=== PATIENT | male | born 1945 | race Caucasian/White ===

== ENCOUNTER 2017-04-04 15:31 | Emergency (ER) | payer BC ==
[~2017-04-04] VITALS: Ht 172.7 cm; Wt 132.8 kg
[2017-04-04 15:42] VITALS: TEMP 36.9; Ht 172.7 cm; Wt 132.8 kg
--- NOTE | 2017-04-04 16:28 | EMERGENCY ROOM VISIT NOTE ---
History Report prepared by Adeline: Mando Vargas Under the Supervision of: Dr. Sheldon Thomason M.D. First contact with patient: 16:06 Chief Complaint: RECTAL BLEEDING Stated Complaint: BLOOD IN STOOL History of Present Illness The patient is a 71 year old male who presents to the Emergency Room with complaints of persistent hematochezia occurring earlier today. The patient states that for the past several weeks he was having light stool that was loose. Today, he had two bowel movements that looked like little balls that were covered in blood. He states that afterwards when he wiped he had blood mixed with his stool. The patient notes that he has been having some intermittent abdominal pain as well as pain that radiates into his right shoulder. The patient takes a low dose aspirin daily, and he has diabetes. He states that he had a colonoscopy done 2-3 years ago, and he had a few polyps removed. Source of History: patient Onset: earlier today Position: other (global) Quality: other (hematochezia) Timing: other (persistent) Associated Symptoms: + abdominal pain Note: Associated symptoms: Shoulder pain Review of Systems See HPI for pertinent positives & negatives. A total of 10 systems reviewed and were otherwise negative. Past Medical & Surgical Medical Problems: (1) Diabetes (2) Heart disease (3) HTN (hypertension) (4) Kidney disease Family History Cancer Diabetes mellitus Heart disease Social History Smoking Status: Former Smoker Marital Status: single Housing Status: lives with family Occupation Status: retired Current/Historical Medications Scheduled Allopurinol (Zyloprim), 300 MG PO HS Amlodipine (Norvasc), 5 MG PO HS Aspirin (Aspirin Ec), 81 MG PO HS Atorvastatin (Lipitor), 40 MG PO HS Ciprofloxacin Hcl (Cipro), 1 TAB PO BID Docusate Sodium (Colace), 1 CAP PO BID Ferrous Sulfate (Iron), 650 MG PO DAILY Furosemide (Lasix), 60 MG PO QAM Furosemide (Lasix), 40 MG PO DAILY@1200 Glipizide (Glipizide ER), 10 MG PO QAM Insulin Aspart (Novolog), 6 UNITS SQ DAILYBD Insulin Glargine (Lantus), 35 UNITS SC QPM Insulin Glargine (Lantus), 20 UNITS SC QAM Lisinopril (Zestril), 20 MG PO BID Metronidazole (Flagyl), 500 MG PO TID Multiple Vitamins W/ Minerals (One Daily For Men 50+ Adv), 1 TAB PO DAILY Pantoprazole (Protonix), 40 MG PO DAILY Sennosides (Senokot), 8.6 MG PO HS Terazosin Hcl (Hytrin), 2 MG PO HS Scheduled PRN Hydralazine HCl (Hydralazine HCl), 75 MG PO TID PRN for . Allergies Coded Allergies: Beta Adrenergic Blockers (Unverified Allergy, Unknown, ., 04/04/17) Penicillins (Unverified Allergy, Unknown, ., 04/04/17) Tetracycline (Unverified Allergy, Unknown, ., 04/04/17) Physical Exam Vital Signs Date Time Temp Pulse Resp B/P (MAP) Pulse Ox O2 Delivery O2 Flow Rate FiO2 04/04/17 18:10 73 18 171/75 96 04/04/17 15:42 36.9 70 18 184/79 93 Room Air Physical Exam GENERAL: Patient is a healthy-appearing well-nourished male HEAD: Normocephalic atraumatic EYES: Ocular movements intact pupils equal and react to light OROPHARYNX mucous membranes are moist no exudates present no erythema or edema present NECK: Supple no nuchal rigidity CHEST: Good equal expansion LUNGS: Clear and equal to auscultation CARDIAC: Normal S1 and S2 ABDOMEN: Soft nontender no guarding BACK: No CVA tenderness RECTAL: Heme negative stool. EXTREMITIES: No pain upon palpation normal muscle strength in all groups no clubbing cyanosis or edema NEURO: Patient is following commands and answering questions appropriately. Alert and oriented x3 Cranial Nerves 2-12 grossly intact Medical Decision & Procedures ER Provider Diagnostic Interpretation: Radiology results as stated below per my review and radiologist interpretation: ABDOMEN AND PELVIS CT WITH IV CONTRAST CT DOSE: 1605.20 mGy.cm HISTORY: Acute generalized abdominal pain with rectal bleeding Pt c/o abd pain, rectal bleeding TECHNIQUE: Multiaxial CT images of the abdomen and pelvis were performed following the use of intravenous contrast. 118 mL Optiray 320 IV contrast administered A dose lowering technique was utilized adhering to the principles of ALARA. COMPARISON STUDY: None. FINDINGS: Calcified granuloma the left lower lobe. Calcified left hilar lymph nodes. No pneumatosis or pneumoperitoneum identified. Imaged inferior cardiac chambers are noted limits of normal in size. Coronary arterial calcifications noted. Prior cholecystectomy. 4 mm low attenuating lesion of the anterior right hepatic lobe is too small to characterize, however statistically likely benign. Calcifications are noted throughout the spleen compatible with prior hematogenous granulomatous disease. Splenomegaly, 17 cm. Mild diffuse pancreatic atrophy. Adrenal glands are within normal limits. Low attenuating lesions of the kidneys bilaterally suggests renal cysts, largest measuring 1.6 cm within the inferior pole left kidney. Mild bilateral renal cortical thinning with renal vascular calcifications. Mild nonspecific bilateral perinephric stranding. No renal calculi or hydronephrosis. Ureters and urinary bladder are unremarkable. Prostate is mildly enlarged. There is moderate atherosclerosis of the aorta and its proximal branch vessels. No bulky adenopathy identified. Nonspecific superficial subcutaneous venous varices of the right lateral thigh. Ovoid circumscribed soft tissue structure, 1.8 x 1.4 cm is noted anterior to the distal esophagus just proximal to the diaphragmatic hiatus as seen on image 72 series 3. There are adjacent nonenlarged paraesophageal lymph nodes measuring up to 7 mm. Nonenlarged gastrohepatic lymph nodes are seen measuring up to 7 mm No bowel obstruction. Moderate sigmoid diverticulosis. Inflamed diverticulum of the mid sigmoid colon noted, image 267 series 3 with moderate wall thickening and surrounding inflammatory stranding. No perforation or abscess identified. Moderate stool volume throughout the colon suggest constipation. Appendix appears normal. Soft tissues are unremarkable. Bones appear intact. Multilevel degenerative changes of the lumbar spine. Findings include multilevel at least moderate facet arthropathy and moderate severe intervertebral disc space narrowing with endplate spurring. IMPRESSION: 1. Findings compatible with acute uncomplicated sigmoid diverticulitis. 2. Splenomegaly. 3. Prior granulomatous disease. 4. Ovoid circumscribed structure measuring 1.8 x 1.4 cm is noted anterior to the distal esophagus just proximal to the diaphragmatic hiatus with adjacent small nonenlarged lymph nodes. This suggests an enlarged lymph node and may be reactive or metastatic. These findings could be correlated with endoscopy. 5. Prior cholecystectomy. Electronically signed by: Elliott Mcghee M.D. 04/04/2017 5:24 PM Dictated Date/Time: 04/04/2017 5:12 PM Laboratory Results 04/04/17 16:40 Red Blood Count 5.29, Mean Corpuscular Volume 87.3, Mean Corpuscular Hemoglobin 31.2, Mean Corpuscular Hemoglobin Concent 35.7, Mean Platelet Volume 10.6, Neutrophils (%) (Auto) 80.5, Lymphocytes (%) (Auto) 9.8, Monocytes (%) (Auto) 6.8, Eosinophils (%) (Auto) 2.2, Basophils (%) (Auto) 0.4, Neutrophils # (Auto) 8.82, Lymphocytes # (Auto) 1.07, Monocytes # (Auto) 0.74, Eosinophils # (Auto) 0.24, Basophils # (Auto) 0.04 04/04/17 16:40 Test 04/04/17 16:40 04/04/17 16:53 White Blood Count 10.94 K/uL (4.8-10.8) Red Blood Count 5.29 M/uL (4.7-6.1) Hemoglobin 16.5 g/dL (14.0-18.0) Hematocrit 46.2 % (42-52) Mean Corpuscular Volume 87.3 fL (80-100) Mean Corpuscular Hemoglobin 31.2 pg (25-34) Mean Corpuscular Hemoglobin Concent 35.7 g/dl (32-36) Platelet Count 100 K/uL (130-400) Mean Platelet Volume 10.6 fL (7.4-10.4) Neutrophils (%) (Auto) 80.5 % Lymphocytes (%) (Auto) 9.8 % Monocytes (%) (Auto) 6.8 % Eosinophils (%) (Auto) 2.2 % Basophils (%) (Auto) 0.4 % Neutrophils # (Auto) 8.82 K/uL (1.4-6.5) Lymphocytes # (Auto) 1.07 K/uL (1.2-3.4) Monocytes # (Auto) 0.74 K/uL (0.11-0.59) Eosinophils # (Auto) 0.24 K/uL (0-0.5) Basophils # (Auto) 0.04 K/uL (0-0.2) RDW Standard Deviation 44.6 fL (36.4-46.3) RDW Coefficient of Variation 14.0 % (11.5-14.5) Immature Granulocyte % (Auto) 0.3 % Immature Granulocyte # (Auto) 0.03 K/uL (0.00-0.02) Prothrombin Time 10.4 SECONDS (9.0-12.0) Prothromb Time International Ratio 1.0 (0.9-1.1) Activated Partial Thromboplast Time 26.7 SECONDS (21.0-31.0) Partial Thromboplastin Ratio 1.0 Est Creatinine Clear Calc Drug Dose 58.7 ml/min Estimated GFR () 51.4 Estimated GFR (Non- 44.3 BUN/Creatinine Ratio 29.3 (10-20) Calcium Level 8.8 mg/dl (8.5-10.1) Total Bilirubin 0.6 mg/dl (0.2-1) Direct Bilirubin 0.2 mg/dl (0-0.2) Aspartate Amino Transf (AST/SGOT) 13 U/L (15-37) Alanine Aminotransferase (ALT/SGPT) 26 U/L (12-78) Alkaline Phosphatase 159 U/L (45-117) Total Protein 7.6 gm/dl (6.4-8.2) Albumin 3.7 gm/dl (3.4-5.0) Lipase 380 U/L (73-393) Bedside Hemoglobin 15.6 g/dl (14.0-18.0) Bedside Hematocrit 46 % (42-52) Bedside Sodium 141 mEq/L (135-144) Bedside Potassium 4.0 mEq/L (3.3-5.0) Bedside Chloride 104 mEq/L (101-112) Bedside Total CO2 25 mEq/l (24-31) Anion Gap 17.0 mmol/L (16-25) Bedside Blood Urea Nitrogen 40 mg/dl (7-18) Bedside Creatinine 1.5 mg/dl (0.6-1.3) Bedside Glucose (other) 230 mg/dl (70-99) Bedside Ionized Calcium (Benitez) 1.16 mmol/l (1.12-1.32) Labs reviewed by ED physician. Medications Administered Medications (Trade) Dose Ordered Sig/Bina Route Start Time Stop Time Status Last Admin Dose Admin Ciprofloxacin (Cipro Tab) 500 mg NOW STAT PO 04/04/17 17:38 04/04/17 17:40 DC 04/04/17 17:56 500 MG Metronidazole (Flagyl Tab) 500 mg NOW STAT PO 04/04/17 17:38 04/04/17 17:40 DC 04/04/17 17:56 500 MG ECG Indication: abdominal pain, other (hematochezia) Rate (beats per minute): 70 Rhythm: sinus rhythm Findings: 1st degree AV block, no acute ischemic change, no ectopy, other (Old inferior infarct) ED Course 1606: Past medical records reviewed. The patient was evaluated in room C4. A complete history and physical examination was performed. 1738: Flagyl Tab 500mg PO, Cipro Tab 500mg PO 1740: Upon reexamination the patient is doing well. I discussed results and treatment plan with the patient. He verbalizes agreement and understanding. The patient is ready for discharge. Medical Decision Differential diagnosis: Etiologies such as diverticulosis, AVM, coagulopathy, colitis, inflammatory bowel disease, malignancy, Meena-Reza tear, esophagitis, peptic ulcer disease , variceal bleed, gastritis, epistaxis, fissure, hemorrhoids, as well as others were entertained. This is a 71-year-old male who presents emergency department complaining of abdominal pain along with rectal bleeding. I will note that the patient has a normal hemoglobin level here in the emergency department. Serial abdominal examinations were performed on the patient in the emergency department and at no time did the patient exhibit a surgical abdomen in addition on rectal exam the patient is heme negative. The patient is refusing pain medication here in the emergency department. His CAT scan is concerning for diverticulitis. I do believe that the patient is well enough to be discharged home to be placed on Cipro and Flagyl however I stressed the need to return to the emergency department if the patient's pain becomes out of control or he starts running fevers. In addition I also stressed the need for follow-up with gastroenterology. Patient was in agreement with the treatment plan. Medication Reconcilliation Current Medication List: was personally reviewed by me Blood Pressure Screening Patient's blood pressure: Elevated blood pressure Blood pressure disposition: Referred to PCP Impression Primary Impression: Diverticulitis Scribe Attestation The scribe's documentation has been prepared under my direction and personally reviewed by me in its entirety. I confirm that the note above accurately reflects all work, treatment, procedures, and medical decision making performed by me. Departure Information Dispostion Home / Self-Care Prescriptions Docusate Sodium (COLACE) 100 Mg Cap 1 CAP PO BID for 10 Days, #20 CAP Prov: Sheldon Thomason MD 04/04/17 Sennosides (SENOKOT) 8.6 Mg Tab 8.6 MG PO HS for 10 Days, #10 TAB Prov: Sheldon Thomason MD 04/04/17 Metronidazole (Flagyl) 500 Mg Tab 500 MG PO TID for 10 Days, #30 TAB Prov: Sheldon Thomason MD 04/04/17 Ciprofloxacin Hcl (CIPRO) 500 Mg Tab 1 TAB PO BID for 10 Days, #20 TAB Prov: Sheldon Thomason MD 04/04/17 Referrals No Doctor, Assigned (PCP) Forms HOME CARE DOCUMENTATION FORM, IMPORTANT VISIT INFORMATION, WORK / SCHOOL INSTRUCTIONS Patient Instructions Bleeding Rectal Evaluate Treat, Diverticulitis Dc, Diverticulosis Diverticulitis , ED Hematochezia Stable, My [facility] Additional Instructions Need follow up with Dr Silveira's office for upper undoscopy for lymph node Need follow up with DR Silveira's office for diverticulitis Return if you develop fevers or severe abd pain You were found to have an elevated blood pressure today (>120 sytolic or >90 diastolic). Per medicare guidelines, you need to follow up with this blood pressure screening with your Primary Care Physician (PCP). For a new PCP call [phone]. You have been examined and treated today on an emergency basis only. This is not a substitute for, or an effort to provide, complete comprehensive medical care. It is impossible to recognize and treat all injuries or illnesses in a single emergency department visit. It is therefore important that you follow up closely with your PCP. Call as soon as possible for an appointment. Thank you for your time and consideration. I look forward to speaking with you again soon. Please don't hesitate to call us if you have any questions.
[2017-04-04] MEDS ORDERED: OPTIRAY 320 IV PRN (16:30)
[2017-04-04] MEDS ORDERED: AMLO-114 PO (16:53)
[2017-04-04] MEDS ORDERED: PANT40TA PO (16:53)
[2017-04-04] MEDS ORDERED: HYT/2 PO (16:53)
[2017-04-04] MEDS ORDERED: FRS/40 PO ×2 (16:53)
[2017-04-04] MEDS ORDERED: MULT1TAB18 PO (16:53)
[2017-04-04] MEDS ORDERED: GLCSR10 PO (16:53)
[2017-04-04] MEDS ORDERED: FERR1TAB23 PO (16:53)
[2017-04-04] MEDS ORDERED: ALLO300T2 PO (16:53)
[2017-04-04] MEDS ORDERED: APR50 PO (16:53)
[2017-04-04] MEDS ORDERED: LISI-725 PO (16:53)
[2017-04-04] MEDS ORDERED: NVLG SQ (16:53)
[2017-04-04] MEDS ORDERED: INSDGI SC ×2 (16:53)
[2017-04-04] MEDS ORDERED: ASPI81TA28 PO (16:53)
[2017-04-04] MEDS ORDERED: ATOR-24 PO (16:53)
[2017-04-04 17:04] LABS: PROTHROMBIN TIME (PATIENT) 10.4 SECONDS (9.0-12.0)
[2017-04-04 17:06] LABS: ISTAT CREATININE 1.5 mg/dl (0.6-1.3); ISTAT HEMOGLOBIN 15.6 g/dl (14.0-18.0); ISTAT IONIZED CALCIUM 1.16 mmol/l (1.12-1.32)
[2017-04-04 17:22] LABS: BUN/CREATININE RATIO 29.3 (10-20); CALCIUM 8.8 mg/dl (8.5-10.1); CREATININE 1.56 mg/dl (0.60-1.40); POTASSIUM 3.9 mmol/L (3.5-5.1)
--- NOTE | 2017-04-04 17:25 | DIAGNOSTIC IMAGING REPORT ---
ABDOMEN AND PELVIS CT WITH IV CONTRAST CT DOSE: 1605.20 mGy.cm HISTORY: Acute generalized abdominal pain with rectal bleeding Pt c/o abd pain, rectal bleeding TECHNIQUE: Multiaxial CT images of the abdomen and pelvis were performed following the use of intravenous contrast. 118 mL Optiray 320 IV contrast administered A dose lowering technique was utilized adhering to the principles of ALARA. COMPARISON STUDY: None. FINDINGS: Calcified granuloma the left lower lobe. Calcified left hilar lymph nodes. No pneumatosis or pneumoperitoneum identified. Imaged inferior cardiac chambers are noted limits of normal in size. Coronary arterial calcifications noted. Prior cholecystectomy. 4 mm low attenuating lesion of the anterior right hepatic lobe is too small to characterize, however statistically likely benign. Calcifications are noted throughout the spleen compatible with prior hematogenous granulomatous disease. Splenomegaly, 17 cm. Mild diffuse pancreatic atrophy. Adrenal glands are within normal limits. Low attenuating lesions of the kidneys bilaterally suggests renal cysts, largest measuring 1.6 cm within the inferior pole left kidney. Mild bilateral renal cortical thinning with renal vascular calcifications. Mild nonspecific bilateral perinephric stranding. No renal calculi or hydronephrosis. Ureters and urinary bladder are unremarkable. Prostate is mildly enlarged. There is moderate atherosclerosis of the aorta and its proximal branch vessels. No bulky adenopathy identified. Nonspecific superficial subcutaneous venous varices of the right lateral thigh. Ovoid circumscribed soft tissue structure, 1.8 x 1.4 cm is noted anterior to the distal esophagus just proximal to the diaphragmatic hiatus as seen on image 72 series 3. There are adjacent nonenlarged paraesophageal lymph nodes measuring up to 7 mm. Nonenlarged gastrohepatic lymph nodes are seen measuring up to 7 mm No bowel obstruction. Moderate sigmoid diverticulosis. Inflamed diverticulum of the mid sigmoid colon noted, image 267 series 3 with moderate wall thickening and surrounding inflammatory stranding. No perforation or abscess identified. Moderate stool volume throughout the colon suggest constipation. Appendix appears normal. Soft tissues are unremarkable. Bones appear intact. Multilevel degenerative changes of the lumbar spine. Findings include multilevel at least moderate facet arthropathy and moderate severe intervertebral disc space narrowing with endplate spurring. IMPRESSION: 1. Findings compatible with acute uncomplicated sigmoid diverticulitis. 2. Splenomegaly. 3. Prior granulomatous disease. 4. Ovoid circumscribed structure measuring 1.8 x 1.4 cm is noted anterior to the distal esophagus just proximal to the diaphragmatic hiatus with adjacent small nonenlarged lymph nodes. This suggests an enlarged lymph node and may be reactive or metastatic. These findings could be correlated with endoscopy. 5. Prior cholecystectomy. Electronically signed by: Elliott Mcghee M.D. 04/04/2017 5:24 PM Dictated Date/Time: 04/04/2017 5:12 PM
[2017-04-04 17:37] LABS: BASO % 0.4 %; BASO ABS # 0.04 K/uL (0-0.2); COMPLETE YES; EOS % 2.2 %; HEMATOCRIT 46.2 % (42-52); IG% 0.3 %; LYMPH % 9.8 %; LYMPH ABS # 1.07 K/uL (1.2-3.4); MEAN CELL VOLUME 87.3 fL (80-100); MEAN CORPUSCULAR HEMOGLOBIN 31.2 pg (25-34); MEAN CORPUSCULAR HGB CONC 35.7 g/dl (32-36); MEAN PLATELET VOLUME 10.6 fL (7.4-10.4); MONO % 6.8 %; NEUT % 80.5 %; PLATELET COUNT 100 K/uL (130-400); RED BLOOD COUNT 5.29 M/uL (4.7-6.1); WHITE BLOOD COUNT 10.94 K/uL (4.8-10.8)
[2017-04-04] MEDS ORDERED: METRONIDAZOLE 250 MG TAB PO STA (17:38)
[2017-04-04] MEDS ORDERED: CIPROFLOXACIN 500 MG TAB PO STA (17:38)
[2017-04-04] MEDS ORDERED: SENN1TAB77 PO (17:41)
[2017-04-04] MEDS ORDERED: CIPR-255 PO (17:41)
[2017-04-04] MEDS ORDERED: DOCU-94 PO (17:41)
[2017-04-04] MEDS ORDERED: METR-163 PO (17:41)
[2017-04-04 18:10] VITALS: BP 171/75; PULSE 73; O2SAT 96
== END 2017-04-04 18:11 | disposition home or self-care (01) ==
LOC: C.EDB 15:34 → C.EDC 18:11
DX: K57.92 Diverticulitis of intestine, part unspecified, without perforation or abscess without bleeding (principal); E11.22 Type 2 diabetes mellitus with diabetic chronic kidney disease; I12.9 Hypertensive chronic kidney disease with stage 1 through stage 4 chronic kidney disease, or unspecified chronic kidney disease; N18.9 Chronic kidney disease, unspecified; Z79.82 Long term (current) use of aspirin; Z79.4 Long term (current) use of insulin; Z86.010 Personal history of colon polyps; Z87.891 Personal history of nicotine dependence; Z83.3 Family history of diabetes mellitus; Z82.49 Family history of ischemic heart disease and other diseases of the circulatory system

== ENCOUNTER 2019-12-19 09:20 | Inpatient (IN) ==
--- OUTSIDE RECORDS SUMMARY | 2019-12-19 09:22 | External Medical Summary | Continuity of Care Document ---
:1945 Author Name Senait Desai, Provider Address Unavailable Unavailable , Care Team Providers Name Role Phone Lizzy Desai, [email or web address] OSHEA M.D., HARRIET Heaton Unavailable Unavailable Unavailable Unavailable Unavailable Problems Solitary pulmonary nodule (793.11) (R91.1) Allergies and Adverse Reactions Penicillins (Allergy) Tetracyclines (Allergy) Medications Viagra 50 MG Oral Tablet; TAKE DIRECTED. Refills: 0 Glimepiride 4 MG Oral Tablet; TAKE 1 TABLET TWICE DAILY. Refills: 0 Actos 45 MG Oral Tablet; Take 1 tablet daily Refills: 0 Lasix 80 MG Oral Tablet; TAKE TABLET 1.5 in AM and 1 in PM Refills: 0 Coumadin 6 MG Oral Tablet; TAKE 1 TABLET DAILY DIRECTED. Refills: 0 Iron Supplement 325 (65 Fe) MG TABS; TAKE 1 TABLET DAILY WIT H FOOD. Refills: 0 Citalopram Hydrobromide 20 MG Oral Tablet; TAKE 1 TABLET HARRIETT LY. Refills: 0 Vytorin 10-20 MG Oral Tablet; TAKE 1 TABLET DAILY. Refills: 0 Pantoprazole Sodium 40 MG Oral Tablet Delayed Release; TAKE 1 TABLET DAILY. Refills: 0 Warfarin Sodium 3 MG Oral Tablet; TAKE DIRECTED. Refills: 0 hydrALAZINE HCl - 100 MG Oral Tablet; TAKE 1 TABLET 3 times daily Refills: 0 Multi Vitamin/Minerals Oral Tablet; TAKE 1 TABLET DAILY. Refills: 0 Vitamin D2 TABS; TAKE 1 TABLET monthly Refills: 0 amLODIPine Besylate 10 MG Oral Tablet; TAKE 1 TABLET DAILY. Refills: 0 Nitrostat 0.4 MG Sublingual Tablet Subli ngual; PLACE 1 TABLET UNDER THE TONGUE EVERY 5 MINUTES FOR UP TO 3 DOSES NEEDED FOR CHEST PAIN.CALL 911 IF PAIN PERSISTS. Quantity: 15 Refills: 11 Allopurinol 300 MG Oral Tablet; TAKE 1 TABLET DAILY. Refills: 0 Procedures Procedures not documented Immunizations Immunizations not documented Social History - Smoking Status Ex-smoker Plan of Treatment Planned Observations Planned Goals not documented Results No Known Results Results not documented
--- OUTSIDE RECORDS SUMMARY | 2019-12-19 09:22 | External Medical Summary | Continuity of Care Document ---
:1945 Author Name Senait Desai, Provider Address Unavailable Unavailable , Care Team Providers Name Role Phone Lizzy Desai, [email or web address] OSHEA M.D., HARRIET Heaton Unavailable Unavailable [...]
[2019-12-19] MEDS ORDERED: SODIUM CHLORIDE 0.9% 1000ML 1,000 ML IV ONE (09:42)
[2019-12-19] MEDS ORDERED: ASPIRIN CHEW 324 MG PO STA (09:46)
--- NOTE | 2019-12-19 09:46 | Emergency Department Note ---
Impression & Plan ANNEMARIE (acute kidney injury), Acute hyperkalemia, Diarrhea, A-fib ED Provider Note NAME: RAY SANCHEZ AGE: 73 SEX: M : 1945 ARRIVES VIA: Walk-In INFORMANT: Patient ED PROVIDER(S): Freddy Don DO CHIEF COMPLAINT: Abdominal pain, chest pain, shortness of breath, lightheadedness, diarrhea HPI: Patient is a 73-year-old male who presents the ER for multiple complaints. Everything started this past Sunday with weakness. He notes he has been having worsening abdominal pain since then in the epigastric region. He admits to persistent diarrhea about 5 bowel movements per day. He notes he has not been eating or drinking much. He notes he feels extremely rundown. He has been having chest pain with exertion over the same time. As well as shortness of breath. He admits to pain in his upper shoulders as well. Denies any recent antibiotics. No dysuria urgency or frequency. His abdominal pain has been constant and is worse with movement or eating and drinking.He is also lightheaded with changing positions.He is followed up with his PCP and has some set for nuclear stress test coming up next week. ROS: See above HPI for pertinent positives & negatives. A total of 10 systems reviewed and were otherwise negative. PAST MEDICAL HISTORY:See Below PAST SURGICAL HISTORY:See Below FAMILY HISTORY:See Below SOCIAL HISTORY:See Below HOME MEDICATIONS:See Below ALLERGIES:See Below VITALS:See Below PHYSICAL EXAMINATION: GENERAL: Sitting up in bed, alert, well appearing, well nourished, no distress, non-toxic EYE EXAM: normal conjunctiva. PERRL and EOM's grossly intact. OROPHARYNX: no exudate, no erythema, lips, buccal mucosa, and tongue normal and mucous membranes are moist NECK: supple, no nuchal rigidity, no adenopathy, non-tender LUNGS: Clear to auscultation. Normal chest wall mechanics HEART: no murmurs, S1 normal and S2 normal ABDOMEN: abdomen soft, non-tender, normo-active bowel sounds, no masses, no rebound or guarding. BACK: Back is symmetrical on inspection and there is no deformity, no midline tenderness, no CVA tenderness. SKIN: no rashes and no bruising UPPER EXTREMITIES: upper extremities are grossly normal. LOWER EXTREMITIES: No pitting edema. NEURO EXAM: Normal sensorium, cranial nerves II-XII grossly intact, normal speech, no gross weakness of arms, no gross weakness of legs. MEDICAL DECISION MAKING: Patient is a 33-year-old male who presents the ER for diffuse body aches associated with belly pain weakness lightheadedness and dizziness. Upon arrival IV was established blood work was obtained. EKG showedA significant first- degree AV block.Not changed from previous.IV was established blood work is obtained. Labs show no significant leukocytosis or anemia. BMP with acute k idney injury with a creatinine of 2.75 off of a baseline of 1-1.5. CO2 was low at 13. Potassium was significantly elevated at 6.2. LFTs bilirubin was unremarkable. Troponin was negative. Lipase unremarkable. UA negative. Lyme was negative as well. Ordered stool cultures but not obtained. CT abdomen pelvis showed no acute pathology. He was given IV fluids. With his EKG flipping into A. fib and hyperkalemia he was given IV calcium gluconate, 2 A of bicarb, IV dextrose and IV insulin to treat the hyperkalemia. Patient was updated bedside. Discussed with Za Harrell from nephrology. She notes she will evaluate him. Discussed with hospitalist for admission and further work- up. Chest x-ray was unremarkable. Triage Nursing notes reviewed. Prior medical records reviewed Vital Signs: reviewed and remarkable for no significant abnormalities Differential diagnosis: Differential diagnoses includes but is not limited to acute coronary syndrome, myocardial infarction, pericarditis, pulmonary embolus, aortic dissection, pneumonia, pneumothorax, musculoskeletal, shingles, esophageal. ER treatment provided: See below Diagnostics interpreted by me: ECG: Sinus rhythm First-degree AV block Left axis Poor baseline Normal QTC No significant change from March 2017 EKG #2 A. fib rate of 50 Left axis No PVCs Normal QTC Inferior Q waves Cardiac Monitoring: An order was placed for continuous cardiac monitoring. The monitor shows a rate of 65 with Sinus rhythm. Laboratory studies: As stated above and show below. Imaging studies: CT abdomen pelvis shows no acute pathology Portable AP upright 1 view of the chest shows no focal infiltrate or pneumothorax Consultation(s): Discussed with the hospitalist for further evaluation Discussed with Dr. Za Harrell for further evaluation from nephrology standpoint. agreed with current treatment. ED COURSE: Procedures: none Critical Care: I have personally spent 35 minutes of critical care time in the direct managem ent of this patient. This includes bedside care, interpretation of diagnostic studies, and testing, discussion with consultants, patient, and family members, and other required patient management activities. This 35 minutes is in excess of all separately billable procedures. Past Med/Surg History Social History Smoking Status: Former smoker Feels Safe at Home: Yes Allergies Allergies Allergy/AdvReac Type Severity Reaction Status Date / Time Beta-Blockers Allergy Unknown . Unverified 12/19/19 10:49 (Beta-Adrenergic Bloc Penicillins Allergy Unknown . Unverified 12/19/19 10:49 tetracycline Allergy Unknown . Unverified 12/19/19 10:49 Home Meds Home Medications Medication Instructions Recorded Confirmed allopurinol 200 mg PO HS 12/19/19 12/19/19 amlodipine 10 mg PO HS 12/19/19 12/19/19 aspirin 81 mg PO HS 12/19/19 12/19/19 atorvastatin 40 mg PO HS 12/19/19 12/19/19 ergocalciferol (vitamin D2) 1,250 mcg PO MONTHLY 12/19/19 12/19/19 furosemide 40 - 60 mg PO DIRECTED 12/19/19 12/19/19 glipizide 10 mg PO QAM 12/19/19 12/19/19 hydralazine 75 mg PO TID 12/19/19 12/19/19 insulin aspart U-100 [Novolog 6 unit SUBCUT PM 12/19/19 12/19/19 Flexpen U-100 Insulin] insulin glargine [Lantus Solostar 25 unit SUBCUT DAILY 12/19/19 12/19/19 U-100 Insulin] isosorbide mononitrate 60 mg PO QAM 12/19/19 12/19/19 lisinopril 20 mg PO BID 12/19/19 12/19/19 [id number]-lycopen-lutein 1 tab PO DAILY 12/19/19 12/19/19 [Centrum Silver Men] polyethylene glycol 3350 [Gavilax] 1 g PO DIRECTED PRN 12/19/19 12/19/19 sodium zirconium cyclosilicate 10 g PO PM 12/19/19 12/19/19 [Lokelma] spironolactone 25 mg PO QAM 12/19/19 12/19/19 terazosin 2 mg PO HS 12/19/19 12/19/19 Results & Data (ED) Vital Signs Vital Signs - 24 hr 12/19/19 09:27 12/19/19 09:43 12/19/19 10:06 Temperature 36.7 C Temperature Source Oral Pulse Rate 61 75 Pulse Rate [Apical] Pulse Rate from SpO2 Sensor Respiratory Rate 20 14 Respiratory Effort / Characteristics Respiratory Depth Respiratory Pattern Blood Pressure 130/59 L 162/57 H Blood Pressure [Left Arm] Blood Pressure Mean 82 115 Blood Pressure Mean [Left Arm] Pulse Oximetry 98 98 Oxygen Delivery Method Room Air Room Air Sepsis Recent Fever Within 48 Hours No Sepsis New/Unexplained Change in Mental Status No Sepsis Action Taken by Nursing No Action Required 12/19/19 10:08 12/19/19 10:12 12/19/19 10:30 Temperature Temperature Source Pulse Rate 59 L 64 Pulse Rate [Apical] 62 Pulse Rate from SpO2 Sensor Respiratory Rate 18 13 18 Respiratory Effort / Characteristics Respiratory Depth Respiratory Pattern Blood Pressure Blood Pressure [Left Arm] 162/57 H Blood Pressure Mean Blood Pressure Mean [Left Arm] 92 Pulse Oximetry 97 Oxygen Delivery Method Room Air Sepsis Recent Fever Within 48 Hours Sepsis New/Unexplained Change in Mental Status Sepsis Action Taken by Nursing 12/19/19 11:00 12/19/19 11:27 12/19/19 11:30 Temperature Temperature Source Pulse Rate 55 L 47 L 49 L Pulse Rate [Apical] Pulse Rate from SpO2 Sensor 50 L 56 L Respiratory Rate 17 12 16 Respiratory Effort / Characteristics Respiratory Depth Respiratory Pattern Blood Pressure 112/49 L 113/51 L Blood Pressure [Left Arm] Blood Pressure Mean 69 77 Blood Pressure Mean [Left Arm] Pulse Oximetry 97 97 Oxygen Delivery Method Sepsis Recent Fever Within 48 Hours Sepsis New/Unexplained Change in Mental Status Sepsis Action Taken by Nursing 12/19/19 11:31 12/19/19 12:00 12/19/19 12:04 Temperature Temperature Source Pulse Rate 62 54 L Pulse Rate [Apical] 55 L Pulse Rate from SpO2 Sensor 61 54 L Respiratory Rate 17 18 20 Respiratory Effort / Characteristics Non-Labored Spontaneous Respiratory Depth Normal Respiratory Pattern Regular Blood Pressure 92/52 L Blood Pressure [Left Arm] 92/52 L Blood Pressure Mean 72 Blood Pressure Mean [Left Arm] 65 Pulse Oximetry 96 93 95 Oxygen Delivery Method Room Air Sepsis Recent Fever Within 48 Hours Sepsis New/Unexplained Change in Mental Status Sepsis Action Taken by Nursing 12/19/19 12:30 12/19/19 12:31 12/19/19 12:32 Temperature Temperature Source Pulse Rate 50 L 53 L 53 L Pulse Rate [Apical] Pulse Rate from SpO2 Sensor 49 L 52 L 54 L Respiratory Rate 13 14 15 Respiratory Effort / Characteristics Respiratory Depth Respiratory Pattern Blood Pressure 129/67 Blood Pressure [Left Arm] Blood Pressure Mean 100 Blood Pressure Mean [Left Arm] Pulse Oximetry 98 97 Oxygen Delivery Method Sepsis Recent Fever Within 48 Hours Sepsis New/Unexplained Change in Mental Status Sepsis Action Taken by Nursing 12/19/19 13:00 12/19/19 13:01 Temperature Temperature Source Pulse Rate 55 L 53 L Pulse Rate [Apical] Pulse Rate from SpO2 Sensor 55 L 54 L Respiratory Rate 16 15 Respiratory Effort / Characteristics Respiratory Depth Respiratory Pattern Blood Pressure 147/103 H Blood Pressure [Left Arm] Blood Pressure Mean 122 Blood Pressure Mean [Left Arm] Pulse Oximetry 95 99 Oxygen Delivery Method Sepsis Recent Fever Within 48 Hours Sepsis New/Unexplained Change in Mental Status Sepsis Action Taken by Nursing Laboratory Data Result diagrams: 12/19/19 09:50 12/19/19 09:50 Lab Results 12/19/19 12/19/19 12/19/19 Range/Units 09:50 09:50 09:50 WBC 9.66 (4.8-10.8) K/uL RBC 4.37 L (4.7-6.1) M/uL Hgb 13.4 L (14.0-18.0) g/dL Hct 38.9 L (42-52) % MCV 89.0 (80-100) fL MCH 30.7 (25-34) pg MCHC 34.4 (32-36) g/dL RDW Std Deviation 47.3 H (36.4-46.3) fL RDW Coeff of [place] 14.5 (11.5-14.5) % Plt Count 116 L (130-400) K/uL MPV 11.3 H (7.4-10.4) fL Immature Gran % (Auto) 0.2 % Neut % (Auto) 86.7 % Lymph % (Auto) 6.3 % [place] % (Auto) 5.6 % Eos % (Auto) 1.1 % Baso % (Auto) 0.1 % Neut # (Auto) 8.37 H (1.4-6.5) K/uL Lymph # (Auto) 0.61 L (1.2-3.4) K/uL [place] # (Auto) 0.54 (0.11-0.59) K/uL Eos # (Auto) 0.11 (0-0.5) K/uL Baso # (Auto) 0.01 (0-0.2) K/uL Immature Gran # (Auto) 0.02 (0.00-0.02) K/uL Sodium 140 (136-145) mmol/L Potassium 6.2 H* (3.5-5.1) mmol/L Chloride 119 H (98-107) mmol/L Carbon Dioxide 13 L (21-32) mmol/L Anion Gap 8.0 (3-11) BUN 116 H (7-18) mg/dl Creatinine 2.75 H (0.6-1.4) mg/dl Est Cr Clr Drug Dosing 30.0 ml/min Est GFR ( Amer) 25.5 Est GFR (Non-Af Amer) 22.0 BUN/Creatinine Ratio 42.1 H (10-20) Glucose 85 (70-99) mg/dl Calcium 8.9 (8.5-10.1) mg/dl Total Bilirubin 0.5 (0.2-1) mg/dl AST 16 (15-37) U/L ALT 29 (12-78) U/L Alkaline Phosphatase 138 H (45-117) U/L Troponin I < 0.015 (0-0.045) ng/ml Total Protein 7.5 (6.4-8.2) gm/dl Albumin 3.8 (3.4-5.0) gm/dl Globulin 3.7 (2.5-4.0) gm/dl Albumin/Globulin Ratio 1.0 (0.9-2) Lipase 211 (73-393) U/L Lyme Disease IgG Ab Negative (Negative) Lyme Disease IgM Ab Negative (Negative) Administered Medications Discontinued Medications Aspirin (Aspirin Chew 324 Mg) 324 mg PO NOW STA Stop: 12/19/19 09:47 Last Admin: 12/19/19 10:02 Dose: 324 mg Documented by: [id number] Dextrose (Dextrose 50% 50 Ml Syringe) 50 ml IV NOW STA Stop: 12/19/19 10:45 Last Admin: 12/19/19 10:57 Dose: 50 ml Documented by: [id number] Sodium Chloride (Nss 1000ml) 1,000 mls @ 999 mls/hr IV .Q1H1M ONE Stop: 12/19/19 10:42 Last Infusion: 12/19/19 11:11 Dose: 0 mls/hr Documented by: [id number] Admin: 12/19/19 10:02 Dose: 999 mls/hr Documented by: [id number] Calcium Gluconate 1,000 mg/ (Sodium Chloride) 60 mls @ 240 mls/hr IV NOW STA Stop: 12/19/19 10:58 Last Infusion: 12/19/19 11:45 Dose: 0 mls/hr Documented by: [id number] Admin: 12/19/19 11:29 Dose: 240 mls/hr Documented by: [id number] Insulin Human Regular (Novolin-R Insulin Per Unit Charge) 10 units IV NOW STA Stop: 12/19/19 10:45 Last Admin: 12/19/19 10:57 Dose: 10 units Documented by: [id number] Cosigned by: [id number] Sodium Bicarbonate (Sodium Bicarb 8.4% Inj 50 Meq/50 Ml Syr) 150 meq IV NOW STA Stop: 12/19/19 10:45 Last Admin: 12/19/19 10:56 Dose: 100 meq Documented by: [id number] Discharge Plan Visit Data Chief Complaint: Illness Stated Complaint: SICK ED Provider: Freddy Don Discharge Problem: ANNEMARIE (acute kidney injury), Acute hyperkalemia, Diarrhea, A-fib Patient Disposition: Admitted As Inpatient Discharge Instructions Interventions: ED Discharge Assessment Last Done: 12/19/19 15:23 Discharge Problem: Diarrhea Qualifiers: Diarrhea type: unspecified type Qualified Code(s): R19.7 - Diarrhea, unspecified A-fib Qualifiers: Atrial fibrillation type: unspecified Qualified Code(s): I48.91 - Unspecified atrial fibrillation
[2019-12-19 10:05] LABS: Basophils # (auto) 0.01 K/uL (0-0.2); Basophils % (auto) 0.1 %; Eosinophils # (auto) 0.11 K/uL (0-0.5); Eosinophils % (auto) 1.1 %; Hematocrit (blood only) 38.9 % (42-52); Hemoglobin 13.4 g/dL (14.0-18.0); Immature Granulocytes # (auto) 0.02 K/uL (0.00-0.02); Immature Granulocytes % (auto) 0.2 %; Lymphocytes # (auto) 0.61 K/uL (1.2-3.4); Lymphocytes % (auto) 6.3 %; Mean Corpuscular Hemoglobin 30.7 pg (25-34); Mean Corpuscular Hgb Conc 34.4 g/dL (32-36); Mean Platelet Volume 11.3 fL (7.4-10.4); Monocytes # (auto) 0.54 K/uL (0.11-0.59); Monocytes % (auto) 5.6 %; Neutrophils # (auto) 8.37 K/uL (1.4-6.5); Neutrophils % (auto) 86.7 %; Platelet Count 116 K/uL (130-400); RDW Coefficient of Variation 14.5 % (11.5-14.5); RDW Standard Deviation 47.3 fL (36.4-46.3); Red Blood Count 4.37 M/uL (4.7-6.1); White Blood Count 9.66 K/uL (4.8-10.8)
--- NOTE | 2019-12-19 10:10 | XRay Report ---
XR chest 1V portable CLINICAL HISTORY: Chest pain. COMPARISON STUDY: No previous studies for comparison. FINDINGS: Lung volumes are normal. Lungs are clear. There is no pneumothorax or pleural effusion. Car diac size is normal. Mediastinal contours are normal. There is no evidence for pulmonary edema. Incid ental note is made of a calcified left lower lobe granuloma. There are calcified left hilar lymph nod es. IMPRESSION: No acute cardiopulmonary findings. ACT 112: Negative or not required by law. Electronically signed by: Axel Lewis M.D. 12/19/2019 10:08 AM
[2019-12-19 10:39] LABS: Alanine Aminotransferase 29 U/L (12-78); Albumin Level 3.8 gm/dl (3.4-5.0); Alkaline Phosphatase 138 U/L (45-117); Aspartate Aminotransferase 16 U/L (15-37); BUN Creatinine Ratio 42.1 (10-20); Bilirubin,Total 0.5 mg/dl (0.2-1); Blood Urea Nitrogen 116 mg/dl (7-18); Calcium 8.9 mg/dl (8.5-10.1); Carbon Dioxide 13 mmol/L (21-32); Chloride 119 mmol/L (98-107); Est GFR (African American) 25.5; Globulin 3.7 gm/dl (2.5-4.0); Glucose 85 mg/dl (70-99); Lipase 211 U/L (73-393); Potassium 6.2 mmol/L (3.5-5.1); Sodium 140 mmol/L (136-145); Total Protein 7.5 gm/dl (6.4-8.2); Troponin I < 0.015 ng/ml (0-0.045)
[2019-12-19] MEDS ORDERED: SODIUM BICARB 8.4% INJ 50 MEQ/50 ML SYR IV STA (10:44)
[2019-12-19] MEDS ORDERED: CALCIUM GLUCONATE 10% 1,000 MG in SODIUM CHLORIDE 0.9% 50 ML IV STA (10:44)
[2019-12-19] MEDS ORDERED: NovoLIN-R INSULIN PER UNIT CHARGE IV STA (10:44)
[2019-12-19] MEDS ORDERED: DEXTROSE 50% 50 ML SYRINGE IV STA (10:44)
[2019-12-19 11:02] LABS: Lyme Ab IgG w/WB Rflx Negative (Negative); Lyme Ab IgM w/WB Rflx Negative (Negative)
--- NOTE | 2019-12-19 11:32 | CT Scan Report ---
CT SCAN OF THE ABDOMEN AND PELVIS WITHOUT IV CONTRAST CLINICAL HISTORY: Acute renal insufficiency. COMPARISON STUDY: Abdominal CT dated 04/04/2017. TECHNIQUE: CT scan of the abdomen and pelvis is performed from the lung bases to the proximal femora. Images are reviewed in the axial, sagittal, and coronal planes. IV contrast was not administered for this examination. A dose lowering technique was utilized adhering to the principles of ALARA. CT DOSE: 1556.01 mGy.cm FINDINGS: Lung bases: The heart is normal in size and without pericardial effusion. The coronary arteries are d ensely calcified. There are scattered calcified granulomas seen at both lung bases. The lung bases ar e otherwise clear. There is a small hiatal hernia. A 2.4 cm duplication cyst or esophageal diverticul um is located just above the hiatus. This has modestly increased in size as compared to 2017. Liver: The unenhanced liver is normal in size, contour, and attenuation. There is minimal central int rahepatic biliary ductal dilatation. There are scattered calcified hepatic granulomas. Gallbladder: Surgically absent noting clips in the gallbladder fossa. Spleen: Normal in size and attenuation. There are calcified splenic granulomas. Pancreas: The unenhanced pancreas is moderately atrophic and grossly unremarkable. Adrenal glands: Unremarkable. Kidneys: The unenhanced kidneys demonstrate cortical atrophy and are without hydronephrosis. There ar e no renal calculi identified. There is no evidence of contour deforming renal mass lesion. Abdominal vasculature: The abdominal aorta is normal in course and caliber noting advanced atheroscle rotic calcification. Bowel: There is moderate colonic diverticulosis without CT evidence of acute diverticulitis. No bowel obstruction is seen. The appendix is well-visualized and normal. Peritoneum: There is no intraperitoneal free air or abdominal ascites. Lymphadenopathy: No pathologically enlarged lymph nodes are identified in the abdomen or pelvis. Prom inent left inguinal lymph nodes may be on a reactive basis. Pelvic viscera: The prostate gland is enlarged and heterogeneous measuring 6.1 cm in transverse diame ter. There is median lobe hypertrophy. 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 There is a 1.8 cm nodule arising from the anterior right wall of the bladder near the dome, best seen on axial image #365. Skeletal structures: The skeletal structures are osteopenic. There is moderate to advanced lumbosacra l spondylosis. Sclerotic change is noted in the sacroiliac joints. No lytic or blastic lesions are se en. IMPRESSION: 1. The kidneys demonstrate cortical atrophy and are without hydronephrosis. 2. There is a 1.8 cm nodule arising from the anterior right wall of the bladder near the dome. Bladde r neoplasm is the diagnosis of exclusion and follow-up with urology is recommended. 3. Prostatomegaly with evidence of chronic bladder outlet obstruction. 4. Prominent left inguinal lymph nodes may be on a reactive basis. Clinical correlation will be requi red. 5. Moderate colonic diverticulosis without CT evidence of acute diverticulitis. 6. Advanced coronary artery calcification. 7. Additional findings as above. ACT 112: Negative or not required by law. Electronically signed by: Jean-Claude Woo M.D. 12/19/2019 11:30 AM
--- NOTE | 2019-12-19 13:40 | History & Physical Report ---
Date of Service December 19, 2019 Assessment & Plan (1) Weakness: 73-year-old male with history of CAD, intermittent complete heart block, diabetes type 2, hypertension, CKD stage III, other problems noted below presenting with progressive generalized weakness x1 week Weakness, in the setting of acute renal failure on CKD stage III, hyperkalemia Baseline creatinine 2.0, GFR 30 Admission creatinine 2.7, GFR 22, HCO3 13 potassium 6.2 on Lokelma, for hyperkalemia, which patient has discontinued for the past week EKG, sinus bradycardia with first-degree AV block - chronic (similar to 2017) Patient given calcium gluconate, sodium bicarb, insulin, D50 at the ER Discussed with dinkey brakeman Dr. Harrell, patient follows with [facility] Hold Lasix, usually on Lasix 60 mg daily, additional 40 mg at noontime on Wednesdays and Fridays start Bicarb drip repeat labs at 4pm and 8pm Abdominal discomfort, diarrhea History of duodenitis per EGD in 2018, on Protonix [address] abdomen/pelvis: No acute process check stool culture, C. difficile Covid screen: negative Start Protonix 40 mg IV twice daily consult GI, clear liquid diet, n.p.o. post midnight for possible EGD Exertional dyspnea History of CAD Ongoing for the past few weeks per PCP notes Stress test planned as outpatient No active chest pain on my exam Troponin x1 EKG: Sinus bradycardia with first-degree AV block, chronic Check echocardiogram X-ray: No infiltrates or effusion, check COVID to screen Continue Imdur, Lipitor, hold ASA for today in light of GI symptoms History of intermittent complete heart block Beta-christin is contraindicated EKG showing sinus bradycardia with first-degree AV block, chronic Heart rate in the mid 40s-50s at the ER Possible symptomatic bradycardia contributing to weakness? check TSH Monitor in telemetry unit Diabetes type 2 Usually on glipizide, insulin Lantus, aspart Currently will place on clear liquid, renal diet pharmacy glycemic control consult Hypertension Blood pressure on the low normal side at the ER Continue Imdur Hold amlodipine and hydralazine History of CVA Hold Aspirin for today continue Lipitor History of obstructive sleep apnea will clarify if patient uses CPAP at home, if he does, will order CPAP Gout Continue allopurinol- will renally dose- from 200mg to 50mg q2d DVT prophylaxis SCDs for now in light of abdominal pain, possible duodenitis versus PUD Disposition Lives at home with his Anticipate discharge home medically stable CODE STATUS Full code per patient History of Present Illness Patient is a 73-year-old male with history of CAD, complete heart block, in termittent complete heart block, diabetes type 2, hypertension, CKD stage III, And other problems noted below presenting with weakness x1 week. Patient reports at least 1 week history of progressive generalized weakness associated with diffuse abdominal discomfort and diarrhea 3-5 loose bowel movements per day, nonbloody, Poor appetite, weight loss. Reports exertional dyspnea but no chest pain. Denies cough, loss of taste or smell. Reports having chills today as well. At the ER, patient presented with relatively stable vital signs. Creatinine is 2.7, potassium 6.2, bicarbonate 13. CT abdomen and pelvis: No acute process 1. The kidneys demonstrate cortical atrophy and are without hydronephrosis. 2. There is a 1.8 cm nodule arising from the anterior right wall of the bladder near the dome. Bladder neoplasm is the diagnosis of exclusion and follow-up with urology is recommended. 3. Prostatomegaly with evidence of chronic bladder outlet obstruction. 4. Prominent left inguinal lymph nodes may be on a reactive basis. Clinical correlation will be required. 5. Moderate colonic diverticulosis without CT evidence of acute diverticulitis. 6. Advanced coronary artery calcification. 7. Additional findings as above. Chest x-ray: No pneumonia or infiltrates, effusion On exam, the patient reports that he feels slightly better compared to admission. Denies active shortness of breath, chest pain, palpitations, dizziness, nausea vomiting, chills, headache. No other symptoms Primary Care Provider: John Arcos DO Allergies Allergy/AdvReac Type Severity Reaction Status Date / Time Beta-Blockers Allergy Unknown . Unverified 12/19/19 10:49 (Beta-Adrenergic Bloc Penicillins Allergy Unknown . Unverified 12/19/19 10:49 tetracycline Allergy Unknown . Unverified 12/19/19 10:49 Home Medications Home Medications Medication Instructions Recorded Confirmed Type allopurinol 200 mg PO HS 12/19/19 12/19/19 History amlodipine 10 mg PO HS 12/19/19 12/19/19 History aspirin 81 mg PO HS 12/19/19 12/19/19 History atorvastatin 40 mg PO HS 12/19/19 12/19/19 History ergocalciferol (vitamin D2) 1,250 mcg PO MONTHLY 12/19/19 12/19/19 History furosemide 40 - 60 mg PO DIRECTED 12/19/19 12/19/19 History glipizide 10 mg PO QAM 12/19/19 12/19/19 History hydralazine 75 mg PO TID 12/19/19 12/19/19 History insulin aspart U-100 [Novolog 6 unit SUBCUT PM 12/19/19 12/19/19 History Flexpen U-100 Insulin] insulin glargine [Lantus Solostar 25 unit SUBCUT DAILY 12/19/19 12/19/19 History U-100 Insulin] isosorbide mononitrate 60 mg PO QAM 12/19/19 12/19/19 History lisinopril 20 mg PO BID 12/19/19 12/19/19 History zsjgipzt-lfn-CN-lycopen-lutein 1 tab PO DAILY 12/19/19 12/19/19 History [Centrum Silver Men] polyethylene glycol 3350 [Gavilax] 1 g PO DIRECTED PRN 12/19/19 12/19/19 History sodium zirconium cyclosilicate 10 g PO PM 12/19/19 12/19/19 History [Lokelma] spironolactone 25 mg PO QAM 12/19/19 12/19/19 History terazosin 2 mg PO HS 12/19/19 12/19/19 History Past Med/Surg History Social History Smoking Status: Former smoker Feels Safe at Home: Yes Review of Systems Review of Systems: All systems reviewed & are unremarkable except as noted in HPI & below Physical Exam Physical Exam: General- oriented x 3, not in distress, speaks in sentences with no effort or accessory muscle use Head- atraumatic Eyes- PERRL, EOMI, anicteric ENT- oropharynx clear Neck- supple, no JVD, no adenopathy, no thyromegaly; carotids +2/2, no bruits appreciated Lungs- clear to auscultation bilaterally, no rales/wheezes Heart-mild bradycardia in the 50s, regular rhythm; no murmur, no gallop, no rub appreciated Abdomen- normal bowel sounds, nondistended, soft, mild tenderness on all quadrants, no masses or hepatosplenomegaly Extremities- no pretibial edema, no calf tenderness; peripheral pulses intact Neuro- alert, oriented x 3; CN 2-12 grossly intact; motor 5/5 bilater ally;sensation 100% on all extremities; no other gross focal neurologic deficits Skin- warm & dry Results & Data Results & Data ([facility]) Vital Signs (Past 12 Hours) Vital Signs Temp Pulse Pulse Resp BP BP Pulse Ox 12/19/19 12:31 53 L 14 129/67 98 12/19/19 12:30 50 L 13 12/19/19 12:04 55 L 20 92/52 L 95 12/19/19 12:00 54 L 18 92/52 L 93 12/19/19 11:31 62 17 96 12/19/19 11:30 49 L 16 113/51 L 97 12/19/19 11:27 47 L 12 112/49 L 97 12/19/19 11:00 55 L 17 12/19/19 10:30 64 18 12/19/19 10:12 59 L 13 12/19/19 10:08 62 18 162/57 H 97 12/19/19 10:06 75 14 162/57 H 12/19/19 09:43 98 12/19/19 09:27 36.7 C 61 20 130/59 L 98 Laboratory Results Laboratory Results - last 24 hr 12/19/19 12/19/19 12/19/19 09:50 09:50 09:50 WBC 9.66 RBC 4.37 L Hgb 13.4 L Hct 38.9 L MCV 89.0 MCH 30.7 MCHC 34.4 RDW Std Deviation 47.3 H RDW Coeff of [place] 14.5 Plt Count 116 L MPV 11.3 H Immature Gran % (Auto) 0.2 Neut % (Auto) 86.7 Lymph % (Auto) 6.3 [place] % (Auto) 5.6 Eos % (Auto) 1.1 Baso % (Auto) 0.1 Neut # (Auto) 8.37 H Lymph # (Auto) 0.61 L [place] # (Auto) 0.54 Eos # (Auto) 0.11 Baso # (Auto) 0.01 Immature Gran # (Auto) 0.02 Sodium 140 Potassium 6.2 H* Chloride 119 H Carbon Dioxide 13 L Anion Gap 8.0 BUN 116 H Creatinine 2.75 H Est Cr Clr Drug Dosing 30.0 Est GFR ( Amer) 25.5 Est GFR (Non-Af Amer) 22.0 BUN/Creatinine Ratio 42.1 H Glucose 85 Calcium 8.9 Total Bilirubin 0.5 AST 16 ALT 29 Alkaline Phosphatase 138 H Troponin I < 0.015 Total Protein 7.5 Albumin 3.8 Globulin 3.7 Albumin/Globulin Ratio 1.0 Lipase 211 Lyme Disease IgG Ab Negative Lyme Disease IgM Ab Negative COVID-19 Eval Order 12/19/19 13:26 WBC RBC Hgb Hct MCV MCH MCHC RDW Std Deviation RDW Coeff of [place] Plt Count MPV Immature Gran % (Auto) Neut % (Auto) Lymph % (Auto) [place] % (Auto) Eos % (Auto) Baso % (Auto) Neut # (Auto) Lymph # (Auto) [place] # (Auto) Eos # (Auto) Baso # (Auto) Immature Gran # (Auto) Sodium Potassium Chloride Carbon Dioxide Anion Gap BUN Creatinine Est Cr Clr Drug Dosing Est GFR ( Amer) Est GFR (Non-Af Amer) BUN/Creatinine Ratio Glucose Calcium Total Bilirubin AST ALT Alkaline Phosphatase Troponin I Total Protein Albumin Globulin Albumin/Globulin Ratio Lipase Lyme Disease IgG Ab Lyme Disease IgM Ab COVID-19 Eval Order Pending
--- NOTE | 2019-12-19 13:42 | Electrocardiogram Report ---
Test Reason : Blood Pressure : / mmHG Vent. Rate : 065 BPM Atrial Rate : 065 BPM P-R Int : 480 ms QRS Dur : 084 ms QT Int : 382 ms P-R-T Axes : 000 -45 033 degrees QTc Int : 397 ms Sinus rhythm with 1st degree A-V block Left axis deviation Possible Old Inferior infarct (cited on or before 04-APR-2017) Poor R wave progression, consider anterior CO vs. lead placement vs. LVH Abnormal ECG When compared with ECG of 04-APR-2017 16:28, No significant change was found Confirmed by Teo Gonzalez ([id number]) on 12/19/2019 1:41:48 PM Referred By: REFERRED SELF Confirmed By:Teo Gonzalez
--- NOTE | 2019-12-19 14:02 | Electrocardiogram Report ---
Test Reason : Blood Pressure : / mmHG Vent. Rate : 050 BPM Atrial Rate : 055 BPM P-R Int : 000 ms QRS Dur : 088 ms QT Int : 410 ms P-R-T Axes : 000 -38 032 degrees QTc Int : 373 ms Sinus rhythm with 2nd degree A-V block ([place] I) Left axis deviation Possible Old Inferior infarct (cited on or before 04-APR-2017) Poor R wave progression, consider anterior CT vs. lead placement vs. LVH Abnormal ECG When compared with ECG of 19-DEC-2019 09:46, Second degree A-V block now present Confirmed by Teo Gonzalez ([id number]) on 12/19/2019 2:01:47 PM Referred By: REFERRED SELF Confirmed By:Teo Gonzalez
[2019-12-19 15:30] LABS: Appearance Urine Clear (Clear); Bilirubin Urine Negative (Negative); Blood Urine Negative (Negative); Color Urine Yellow; Glucose Urine UA Negative (Negative); Ketones Urine Negative (Negative); Leukocyte Esterase Urine Negative (Negative); Nitrite Urine Negative (Negative); Protein Urine Negative (Negative); Specific Gravity Urine 1.015 (1.000-1.030); Urobilinogen Urine Negative (Negative)
[2019-12-19] MEDS ORDERED: LOPERAMIDE HCL 2 MG CAP PO PRN (16:02)
[2019-12-19] MEDS ORDERED: PHARMACY GLYCEMIC MGMT CONSULT PRN (16:23)
--- NOTE | 2019-12-19 16:26 | Gastrointestinal Consultation ---
Date of Consultation December 19, 2019 Supervising Physician Co-Signing Physician Notes 73 yo male with a history of htn, cardiac history, prior cholecystectomy, recent initiation of lokelma and now with looser stools for the past few days. Benign exam. Labs significant for slight drop in hgb, bun rise but likely from dehydration from diarrhea. Would check stool studies, c diff. IV fluids. If infectious workup is negative, could be from recent medication. Would try iv fluids, colestid, assess response to above. If persistent diarrhea despite above, he may have a mild case of microscopic colitis from recent new medications and could consider bismuth subsalicylate 3 262 mg tablets tid for 14 days. No plans for scopes this weekend per assessment this weekend. Can try a clear liquid diet for now. History of Present Illness Reason for Consultation: Diarrhea/Weakness Requesting Physician: Dr. Farrell Attending Physician: David Farrell MD History of Present Illness 73 yo male with a history of htn, heart history, chronic kidney disease, admitted now with weakness and bun elevation, and reports of non-bloody diarrhea. GI is consulted for diarrhea. Recent intiation of Lokelma for constipation and reports now history of diarrhea for the past few days - going more often about 3-4 times a day and feeling weak in general. No other abx. Mild abdominal discomfort but not pain and no bloody stools. No other supplements or new medications. No recent travel or new types of food. Last egd/colon in 2018. Had a CT on admission showing no acute abdominal findings. Allergies Allergy/AdvReac Type Severity Reaction Status Date / Time Beta-Blockers Allergy Unknown . Unverified 12/19/19 10:49 (Beta-Adrenergic Bloc Penicillins Allergy Unknown . Unverified 12/19/19 10:49 tetracycline Allergy Unknown . Unverified 12/19/19 10:49 Home Medications Home Medications Medication Instructions Recorded Confirmed Type allopurinol 200 mg PO HS 12/19/19 12/19/19 History amlodipine 10 mg PO HS 12/19/19 12/19/19 History aspirin 81 mg PO HS 12/19/19 12/19/19 History atorvastatin 40 mg PO HS 12/19/19 12/19/19 History ergocalciferol (vitamin D2) 1,250 mcg PO MONTHLY 12/19/19 12/19/19 History furosemide 40 - 60 mg PO DIRECTED 12/19/19 12/19/19 History glipizide 10 mg PO QAM 12/19/19 12/19/19 History hydralazine 75 mg PO TID 12/19/19 12/19/19 History insulin aspart U-100 [Novolog 6 unit SUBCUT PM 12/19/19 12/19/19 History Flexpen U-100 Insulin] insulin glargine [Lantus Solostar 25 unit SUBCUT DAILY 12/19/19 12/19/19 History U-100 Insulin] isosorbide mononitrate 60 mg PO QAM 12/19/19 12/19/19 History lisinopril 20 mg PO BID 12/19/19 12/19/19 History ubkmqcrn-dfn-QN-lycopen-lutein 1 tab PO DAILY 12/19/19 12/19/19 History [Centrum Silver Men] polyethylene glycol 3350 [Gavilax] 1 g PO DIRECTED PRN 12/19/19 12/19/19 History sodium zirconium cyclosilicate 10 g PO PM 12/19/19 12/19/19 History [Lokelma] spironolactone 25 mg PO QAM 12/19/19 12/19/19 History terazosin 2 mg PO HS 12/19/19 12/19/19 History Patient History Social History Smoking Status: Former smoker Feels Safe at Home: Yes Review of Systems Review of Systems: All systems reviewed & are unremarkable except as noted in HPI & below Physical Exam Physical Exam: Obese male in nad Eyes: PERRL, conjunctivae normal, anicteric sclerae Respiratory: normal respiratory effort, lungs clear to auscultation Cardiovascular: RRR, no murmur, no edema Gastrointestinal (Abdomen): normal bowel sounds, soft, nontender, no hepatosplenomegaly Skin: no rashes, warm and dry Results & Data ([facility]) Vital Signs (Past 12 Hours) Vital Signs Temp Pulse Pulse Resp BP BP Pulse Ox 12/19/19 16:03 36.6 C 76 18 123/59 L 98 12/19/19 15:01 64 16 94 12/19/19 15:00 50 L 16 138/63 94 12/19/19 14:31 51 L 18 96 12/19/19 14:30 57 L 15 125/79 97 12/19/19 14:01 52 L 17 96 12/19/19 14:00 42 L 17 137/61 93 12/19/19 13:31 58 L 15 98 12/19/19 13:30 67 16 156/69 H 97 12/19/19 13:01 53 L 15 147/103 H 99 12/19/19 13:00 55 L 16 95 12/19/19 12:32 53 L 15 97 12/19/19 12:31 53 L 14 129/67 98 12/19/19 12:30 50 L 13 12/19/19 12:04 55 L 20 92/52 L 95 12/19/19 12:00 54 L 18 92/52 L 93 12/19/19 11:31 62 17 96 12/19/19 11:30 49 L 16 113/51 L 97 12/19/19 11:27 47 L 12 112/49 L 97 12/19/19 11:00 55 L 17 12/19/19 10:30 64 18 12/19/19 10:12 59 L 13 12/19/19 10:08 62 18 162/57 H 97 12/19/19 10:06 75 14 162/57 H 12/19/19 09:43 98 12/19/19 09:27 36.7 C 61 20 130/59 L 98 Labs significant for bun elevation, slight drop in hgb without overt bleeding.
[2019-12-19] MEDS ORDERED: CARBOHYDRATES FOR HYPOGLYCEMIA PO PRN (16:45)
[2019-12-19] MEDS ORDERED: DEXTROSE 50% 50 ML SYRINGE IV PRN (16:45)
[2019-12-19] MEDS ORDERED: GLUCOSE 10 TABS/TUBE PO PRN (16:45)
[2019-12-19] MEDS ORDERED: GLUCAGON FOR INJ 1 MG VIAL IM PRN (16:45)
[2019-12-19] MEDS ORDERED: GLUCOSE 40% GEL 15 GM TUBE PO PRN (16:45)
[2019-12-19 16:59] LABS: BUN Creatinine Ratio 43.5 (10-20); Blood Urea Nitrogen 111 mg/dl (7-18); Calcium 9.3 mg/dl (8.5-10.1); Carbon Dioxide 17 mmol/L (21-32); Chloride 119 mmol/L (98-107); Creatinine Clr Calc Pharmacy 32.2 ml/min; Est GFR (African American) 27.8; Glucose 72 mg/dl (70-99); Potassium 5.9 mmol/L (3.5-5.1); Sodium 142 mmol/L (136-145)
[2019-12-19 17:07] LABS: Troponin I < 0.015 ng/ml (0-0.045)
[2019-12-19] MEDS: PANTOprazole 40 MG in SYRINGE 0 ML IV SCH ×2 (17:43→20:10)
[2019-12-19] MEDS: SODIUM BICARBONATE 8.4% 150 MEQ in DEXTROSE 5% 1,000 ML IV SCH (17:43)
[2019-12-19] MEDS: INSULIN ASPART 100 UNITS/ML 3 ML PEN SC SCH ×2 (17:58→21:30)
[2019-12-19] MEDS: TERAZOSIN HCL 1 MG CAP PO SCH (20:15)
[2019-12-19] MEDS: ATORVASTATIN 40 MG TAB PO SCH (20:15)
[2019-12-19] MEDS: COLESTIPOL HCL 1 GM TAB PO SCH (20:16)
[2019-12-19] MEDS: allopurinoL 100 MG TAB PO SCH (20:16)
[2019-12-19 20:20] LABS: BUN Creatinine Ratio 44.9 (10-20); Calcium 8.4 mg/dl (8.5-10.1); Creatinine Clr Calc Pharmacy 34.2 ml/min; Est GFR (African American) 30.1
[2019-12-19] MEDS ORDERED: FUROSEMIDE 40 MG in SYRINGE 0 ML IV ONE (21:15)
[2019-12-19] MEDS ORDERED: INSULIN HUMAN REGULAR PER UNIT 10 UNITS in SYRINGE 9.9 ML IV ONE (22:15)
[2019-12-19] MEDS ORDERED: DEXTROSE 50% 50 ML SYRINGE IV ONE (22:15)
[2019-12-20] MEDS ORDERED: CALCIUM GLUCONATE 10% 1,000 MG in SODIUM CHLORIDE 0.9% 50 ML IV STA (02:12)
[2019-12-20] MEDS ORDERED: ATROPINE SULFATE 0.1 MG/ML 10ML SYR IV PRN (02:13)
[2019-12-20] MEDS ORDERED: SODIUM BICARB 8.4% INJ 50 MEQ/50 ML SYR IV STA (02:31)
[2019-12-20 02:56] LABS: Hematocrit (blood only) 33.7 % (42-52); Hemoglobin 11.3 g/dL (14.0-18.0); Mean Corpuscular Hemoglobin 30.3 pg (25-34); Mean Corpuscular Hgb Conc 33.5 g/dL (32-36); Mean Corpuscular Volume 90.3 fL (80-100); RDW Coefficient of Variation 14.4 % (11.5-14.5); RDW Standard Deviation 47.3 fL (36.4-46.3); Red Blood Count 3.73 M/uL (4.7-6.1); White Blood Count 7.66 K/uL (4.8-10.8)
[2019-12-20 03:21] LABS: Basophils # (auto) 0.01 K/uL (0-0.2); Basophils % (auto) 0.1 %; Eosinophils # (auto) 0.22 K/uL (0-0.5); Eosinophils % (auto) 2.9 %; Immature Granulocytes # (auto) 0.01 K/uL (0.00-0.02); Immature Granulocytes % (auto) 0.1 %; Lymphocytes # (auto) 0.59 K/uL (1.2-3.4); Lymphocytes % (auto) 7.7 %; Mean Platelet Volume 11.8 fL (7.4-10.4); Monocytes # (auto) 0.63 K/uL (0.11-0.59); Monocytes % (auto) 8.2 %; Platelet Count 88 K/uL (130-400); Platelet Estimate Decreased (Normal); RBC Morphology Unremarkable
[2019-12-20 03:30] LABS: BUN Creatinine Ratio 46.7 (10-20); Calcium 8.2 mg/dl (8.5-10.1); Creatinine Clr Calc Pharmacy 36.8 ml/min; Est GFR (African American) 32.9; Est GFR (Non-African American) 28.4; Magnesium 2.4 mg/dl (1.8-2.4); Phosphorus 4.6 mg/dl (2.5-4.9); Potassium 4.9 mmol/L (3.5-5.1); Thyroid Stimulating Hormone 0.837 uIu/ml (0.300-4.500)
[2019-12-20] MEDS: SODIUM BICARBONATE 8.4% 150 MEQ in DEXTROSE 5% 1,000 ML IV SCH ×2 (06:04→19:46)
[2019-12-20 07:01] LABS: Estimated Average Glucose 146 mg/dl; Hemoglobin A1C 6.7 % (4.5-5.6)
--- NOTE | 2019-12-20 08:32 | Cardiology Consultation ---
Date of Consultation December 20, 2019 Assessment & Plan (1) Kidney disease: (2) Acute hyperkalemia: (3) Diarrhea: (4) Bradycardia: The patient in the past has been evaluated by the EP service for possible pacemaker however, he has been doing very well up until this point, remaining active and being able to walk several miles without difficulty. His main complaint on admission seems to be related to chronic constipation followed by diarrhea from Kayexalate which was started by nephrology for hyperkalemia. He presented with a potassium of 6.2 with feelings of fatigue and tiredness. Nephrology consultation is pending. I think his medications need to be adjusted and his electrolytes brought into order. I did discuss with him the possibility of moving forward with a permanent pacemaker however, at this time I do not believe that there is an emergent need and I believe we can wait until his electrolytes have improved and then have further discussions. We will follow along with you during his hospital stay. History of Present Illness Attending Physician: Amelie Israel, DO History of Present Illness This is a 73-year-old male patient who is been followed by [facility] cardiology for many years with a history of sinus bradycardia. He has been seen by Dr. Johnson for consideration of a pacemaker however, he has been asymptomatic and even able to walk his dog several miles a day without difficulty. His main complaint recently has been that of constipation, electrolyte abnormalities specifically hyperkalemia and chronic renal failure for which she is followed by the nephrology group. He was started on Kayexalate but had such bad abdominal cramping and diarrhea that he decided to stop this medication himself. He presented with symptoms of fatigue and tiredness and was found to be hyperkalemic with a potassium 6.2. The patient has had sinus bradycardia on the monitor, but the patient is hemodynamically stable with a good overall blood pressure. 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 Unverified 12/19/19 10:49 (Beta-Adrenergic Bloc Penicillins Allergy Unknown . Unverified 12/19/19 10:49 tetracycline Allergy Unknown . Unverified 12/19/19 10:49 Home Medications Home Medications Medication Instructions Recorded Confirmed Type allopurinol 200 mg PO HS 12/19/19 12/19/19 History amlodipine 10 mg PO HS 12/19/19 12/19/19 History aspirin 81 mg PO HS 12/19/19 12/19/19 History atorvastatin 40 mg PO HS 12/19/19 12/19/19 History ergocalciferol (vitamin D2) 1,250 mcg PO MONTHLY 12/19/19 12/19/19 History furosemide 40 - 60 mg PO DIRECTED 12/19/19 12/19/19 History glipizide 10 mg PO QAM 12/19/19 12/19/19 History hydralazine 75 mg PO TID 12/19/19 12/19/19 History insulin aspart U-100 [Novolog 6 unit SUBCUT PM 12/19/19 12/19/19 History Flexpen U-100 Insulin] insulin glargine [Lantus Solostar 25 unit SUBCUT DAILY 12/19/19 12/19/19 History U-100 Insulin] isosorbide mononitrate 60 mg PO QAM 12/19/19 12/19/19 History lisinopril 20 mg PO BID 12/19/19 12/19/19 History cnxnqdsj-uyp-ZH-lycopen-lutein 1 tab PO DAILY 12/19/19 12/19/19 History [Centrum Silver Men] polyethylene glycol 3350 [Gavilax] 1 g PO DIRECTED PRN 12/19/19 12/19/19 History sodium zirconium cyclosilicate 10 g PO PM 12/19/19 12/19/19 History [Lokelma] spironolactone 25 mg PO QAM 12/19/19 12/19/19 History terazosin 2 mg PO HS 12/19/19 12/19/19 History Patient History Family History Father Diabetes Coronary heart disease Social History Smoking Status: Former smoker Hx Alcohol Use: No Hx Substance Use: No Preferred Language: Syriac Communication Ability: Effective Lay Out Machine Operator Required: No Beliefs That Will Affect Care: None Current Living Situation: Spouse Other Information That Helps Us Care for You: No Feels Safe at Home: Yes Safety Concerns: Feels Safe At This Time Review of Systems Review of Systems: All systems reviewed & are unremarkable except as noted in HPI & below Nothing to add Physical Exam Physical Exam: General: no acute distress and stated age Head: normocephalic, no masses, lesions, tenderness or abnormalities Eyes: conjunctiva are pink and non-injected, sclera clear Neck: supple, no adenopathy, no bruits, normal jugular venous pulse, no hepatojugular reflux Chest: normal shape and normal respiratory effort Lungs: clear to auscultation and percussion Cardiac Exam: - regular rate & rhythm, no murmurs gallops or rubs - normal S1, normal S2 Pulses: 2(+) throughout Abdomen: abdomen soft, non-tender, no abnormal masses and no hepatosplenomegaly Musculoskeletal: no gait disturbance, no joint inflammation, no deforming arthritis Extremities: no edema and no cyanosis Neuro: grossly normal exam Results & Data ([facility]) Vital Signs (Past 12 Hours) Vital Signs Temp Pulse Pulse Resp BP Pulse Ox 12/20/19 08:14 36.8 C 54 L 18 141/67 H 98 12/20/19 03:48 36.8 C 49 L 20 152/61 H 96 12/20/19 01:38 36.6 C 60 18 162/63 H 98 12/19/19 23:51 36.6 C 50 L 16 130/65 98 12/19/19 22:00 66 18 98 Laboratory Results Laboratory Results - last 24 hr 12/19/19 12/19/19 12/19/19 09:50 09:50 09:50 WBC RBC Hgb Hct MCV MCH MCHC RDW Std Deviation RDW Coeff of [place] Plt Count MPV Immature Gran % (Auto) Neut % (Auto) Lymph % (Auto) Brooks % (Auto) Eos % (Auto) Baso % (Auto) Neut # (Auto) Lymph # (Auto) Brooks # (Auto) Eos # (Auto) Baso # (Auto) Immature Gran # (Auto) Platelet Estimate RBC Morphology Sodium 140 Potassium 6.2 H* Chloride 119 H Carbon Dioxide 13 L Anion Gap 8.0 BUN 116 H Creatinine 2.75 H Est Cr Clr Drug Dosing 30.0 Est GFR ( Amer) 25.5 Est GFR (Non-Af Amer) 22.0 BUN/Creatinine Ratio 42.1 H Glucose 85 POC Glucose Estimat Average Glucose Hemoglobin A1c Calcium 8.9 Phosphorus Magnesium Total Bilirubin 0.5 AST 16 ALT 29 Alkaline Phosphatase 138 H Troponin I < 0.015 Total Protein 7.5 Albumin 3.8 Globulin 3.7 Albumin/Globulin Ratio 1.0 Lipase 211 TSH Urine Color Urine Appearance Urine pH Ur Specific Smith Urine Protein Urine Glucose (UA) Urine Ketones Urine Blood Urine Nitrite Urine Bilirubin Urine Urobilinogen Ur Leukocyte Esterase Stl C. diff Tox B Gene Lyme Disease IgG Ab Negative Lyme Disease IgM Ab Negative COVID-19 Eval Order COVID-19 PCR Hepatitis C Ab Screen Neg 12/19/19 12/19/19 12/19/19 13:26 13:26 15:15 WBC RBC Hgb Hct MCV MCH MCHC RDW Std Deviation RDW Coeff of [place] Plt Count MPV Immature Gran % (Auto) Neut % (Auto) Lymph % (Auto) Brooks % (Auto) Eos % (Auto) Baso % (Auto) Neut # (Auto) Lymph # (Auto) Brooks # (Auto) Eos # (Auto) Baso # (Auto) Immature Gran # (Auto) Platelet Estimate RBC Morphology Sodium Potassium Chloride Carbon Dioxide Anion Gap BUN Creatinine Est Cr Clr Drug Dosing Est GFR ( Amer) Est GFR (Non-Af Amer) BUN/Creatinine Ratio Glucose POC Glucose Estimat Average Glucose Hemoglobin A1c Calcium Phosphorus Magnesium Total Bilirubin AST ALT Alkaline Phosphatase Troponin I Total Protein Albumin Globulin Albumin/Globulin Ratio Lipase TSH Urine Color Yellow Urine Appearance Clear Urine pH 5.0 Ur Specific Smith 1.015 Urine Protein Negative Urine Glucose (UA) Negative Urine Ketones Negative Urine Blood Negative Urine Nitrite Negative Urine Bilirubin Negative Urine Urobilinogen Negative Ur Leukocyte Esterase Negative Stl C. diff Tox B Gene Lyme Disease IgG Ab Lyme Disease IgM Ab COVID-19 Eval Order Covid19 Done at [facility] COVID-19 PCR NEGATIVE Hepatitis C Ab Screen 12/19/19 12/19/19 12/19/19 16:08 17:53 18:09 WBC RBC Hgb Hct MCV MCH MCHC RDW Std Deviation RDW Coeff of [place] Plt Count MPV Immature Gran % (Auto) Neut % (Auto) Lymph % (Auto) Brooks % (Auto) Eos % (Auto) Baso % (Auto) Neut # (Auto) Lymph # (Auto) Brooks # (Auto) Eos # (Auto) Baso # (Auto) Immature Gran # (Auto) Platelet Estimate RBC Morphology Sodium 142 Potassium 5.9 H Chloride 119 H Carbon Dioxide 17 L Anion Gap 6.0 BUN 111 H Creatinine 2.56 H Est Cr Clr Drug Dosing 32.2 Est GFR ( Amer) 27.8 Est GFR (Non-Af Amer) 24.0 BUN/Creatinine Ratio 43.5 H Glucose 72 POC Glucose 178 H Estimat Average Glucose Hemoglobin A1c Calcium 9.3 Phosphorus Magnesium Total Bilirubin AST ALT Alkaline Phosphatase Troponin I < 0.015 Total Protein Albumin Globulin Albumin/Globulin Ratio Lipase TSH Urine Color Urine Appearance Urine pH Ur Specific Smith Urine Protein Urine Glucose (UA) Urine Ketones Urine Blood Urine Nitrite Urine Bilirubin Urine Urobilinogen Ur Leukocyte Esterase Stl C. diff Tox B Gene TNP Lyme Disease IgG Ab Lyme Disease IgM Ab COVID-19 Eval Order COVID-19 PCR Hepatitis C Ab Screen 12/19/19 12/19/19 12/19/19 19:53 22:36 23:02 WBC RBC Hgb Hct MCV MCH MCHC RDW Std Deviation RDW Coeff of [place] Plt Count MPV Immature Gran % (Auto) Neut % (Auto) Lymph % (Auto) Brooks % (Auto) Eos % (Auto) Baso % (Auto) Neut # (Auto) Lymph # (Auto) Brooks # (Auto) Eos # (Auto) Baso # (Auto) Immature Gran # (Auto) Platelet Estimate RBC Morphology Sodium 143 Potassium 6.0 H Chloride 119 H Carbon Dioxide 19 L Anion Gap 5.0 BUN 108 H Creatinine 2.40 H Est Cr Clr Drug Dosing 34.2 Est GFR ( Amer) 30.1 Est GFR (Non-Af Amer) 26.0 BUN/Creatinine Ratio 44.9 H Glucose 122 H POC Glucose 105 H 144 H Estimat Average Glucose Hemoglobin A1c Calcium 8.4 L Phosphorus Magnesium Total Bilirubin AST ALT Alkaline Phosphatase Troponin I Total Protein Albumin Globulin Albumin/Globulin Ratio Lipase TSH Urine Color Urine Appearance Urine pH Ur Specific Smith Urine Protein Urine Glucose (UA) Urine Ketones Urine Blood Urine Nitrite Urine Bilirubin Urine Urobilinogen Ur Leukocyte Esterase Stl C. diff Tox B Gene Lyme Disease IgG Ab Lyme Disease IgM Ab COVID-19 Eval Order COVID-19 PCR Hepatitis C Ab Screen 12/20/19 12/20/19 12/20/19 02:29 02:29 02:29 WBC 7.66 RBC 3.73 L Hgb 11.3 L Hct 33.7 L MCV 90.3 MCH 30.3 MCHC 33.5 RDW Std Deviation 47.3 H RDW Coeff of [place] 14.4 Plt Count 88 L MPV 11.8 H Immature Gran % (Auto) 0.1 Neut % (Auto) 81.0 Lymph % (Auto) 7.7 Brooks % (Auto) 8.2 Eos % (Auto) 2.9 Baso % (Auto) 0.1 Neut # (Auto) 6.20 Lymph # (Auto) 0.59 L Brooks # (Auto) 0.63 H Eos # (Auto) 0.22 Baso # (Auto) 0.01 Immature Gran # (Auto) 0.01 Platelet Estimate Decreased L RBC Morphology Unremarkable Sodium 143 Potassium 4.9 D Chloride 117 H Carbon Dioxide 20 L Anion Gap 6.0 BUN 104 H Creatinine 2.23 H Est Cr Clr Drug Dosing 36.8 Est GFR ( Amer) 32.9 Est GFR (Non-Af Amer) 28.4 BUN/Creatinine Ratio 46.7 H Glucose 73 POC Glucose Estimat Average Glucose 146 Hemoglobin A1c 6.7 H Calcium 8.2 L Phosphorus 4.6 Magnesium 2.4 Total Bilirubin AST ALT Alkaline Phosphatase Troponin I Total Protein Albumin 3.0 L Globulin Albumin/Globulin Ratio Lipase TSH 0.837 Urine Color Urine Appearance Urine pH Ur Specific Smith Urine Protein Urine Glucose (UA) Urine Ketones Urine Blood Urine Nitrite Urine Bilirubin Urine Urobilinogen Ur Leukocyte Esterase Stl C. diff Tox B Gene Lyme Disease IgG Ab Lyme Disease IgM Ab COVID-19 Eval Order COVID-19 PCR Hepatitis C Ab Screen 12/20/19 07:40 WBC RBC Hgb Hct MCV MCH MCHC RDW Std Deviation RDW Coeff of [place] Plt Count MPV Immature Gran % (Auto) Neut % (Auto) Lymph % (Auto) Brooks % (Auto) Eos % (Auto) Baso % (Auto) Neut # (Auto) Lymph # (Auto) Brooks # (Auto) Eos # (Auto) Baso # (Auto) Immature Gran # (Auto) Platelet Estimate RBC Morphology Sodium Potassium Chloride Carbon Dioxide Anion Gap BUN Creatinine Est Cr Clr Drug Dosing Est GFR ( Amer) Est GFR (Non-Af Amer) BUN/Creatinine Ratio Glucose POC Glucose 114 H Estimat Average Glucose Hemoglobin A1c Calcium Phosphorus Magnesium Total Bilirubin AST ALT Alkaline Phosphatase Troponin I Total Protein Albumin Globulin Albumin/Globulin Ratio Lipase TSH Urine Color Urine Appearance Urine pH Ur Specific Smith Urine Protein Urine Glucose (UA) Urine Ketones Urine Blood Urine Nitrite Urine Bilirubin Urine Urobilinogen Ur Leukocyte Esterase Stl C. diff Tox B Gene Lyme Disease IgG Ab Lyme Disease IgM Ab COVID-19 Eval Order COVID-19 PCR Hepatitis C Ab Screen Medications Administered Current Inpatient Medications Allopurinol (Allopurinol 100 Mg Tab) 50 mg PO Q2D@2100 ON LICENSE OF [facility] Stop: 01/18/20 20:59 Last Admin: 12/19/19 20:16 Dose: 50 mg Documented by: Atorvastatin Calcium (Atorvastatin 40 Mg Tab) 40 mg PO HS [facility]ION Stop: 01/18/20 20:59 Last Admin: 12/19/19 20:15 Dose: 40 mg Documented by: Atropine Sulfate (Atropine Sulfate 0.1 Mg/Ml 10ml Syr) 0.5 mg IV Q3M PRN PRN Reason: symptomatic bradycardia Stop: 01/19/20 02:12 Colestipol HCl (Colestipol Hcl 1 Gm Tab) 1 gm PO BID@1000,2200 ON LICENSE OF [facility] Stop: 01/18/20 21:59 Last Admin: 12/20/19 09:06 Dose: 1 gm Documented by: Dextrose (Dextrose 50% 50 Ml Syringe) 25 - 50 ml IV UD PRN; Protocol PRN Reason: Hypoglycemia Protocol Stop: 01/18/20 16:44 Glucagon (Glucagon For Inj 1 Mg Vial) 1 mg IM UD PRN; Protocol PRN Reason: Hypoglycemia Protocol Stop: 01/18/20 16:44 Glucose (Glucose 40% Gel 15 Gm Tube) 15 - 30 gm PO UD PRN; Protocol PRN Reason: Hypoglycemia Protocol Stop: 01/18/20 16:44 Glucose (Glucose 10 Tabs/Tube) 4 - 8 tabs PO UD PRN; Protocol PRN Reason: Hypoglycemia Protocol Stop: 01/18/20 16:44 Sodium Bicarbonate 150 meq/ (Dextrose) 1,150 mls @ 100 mls/hr IV .[id number] ON LICENSE OF [facility] Stop: 01/18/20 15:29 Last Admin: 12/20/19 06:04 Dose: 100 mls/hr Documented by: Pantoprazole Sodium 40 mg/ (Syringe) 10 mls @ 5 mls/min IV Q12 ON LICENSE OF [facility] Stop: 01/18/20 16:59 Last Admin: 12/20/19 09:06 Dose: 5 mls/min Documented by: Insulin Aspart (Insulin Aspart 100 Units/Ml 3 Ml Pen) 0 units SC ACHS ON LICENSE OF [facility] Stop: 01/18/20 16:59 Last Admin: 12/20/19 09:02 Dose: Not Given Documented by: Isosorbide Mononitrate (Isosorbide Brooks Extended Rel 60 Mg Tabcr) 60 mg PO QAM ON LICENSE OF [facility] Stop: 01/19/20 08:59 Loperamide HCl (Loperamide Hcl 2 Mg Cap) 2 mg PO UD PRN PRN Reason: Diarrhea Stop: 01/18/20 16:01 Miscellaneous (Carbohydrates For Hypoglycemia ) 15 - 30 gm PO UD PRN PRN Reason: Hypoglycemia Treatment Stop: 01/18/20 16:44 Miscellaneous Information (Pharmacy Glycemic Mgmt Consult) 1 ea N/A UD PRN PRN Reason: Consult Stop: 01/18/20 16:22 Nitroglycerin (Nitroglycerin Sl 0.4 Mg/Tab Tab) 0.4 mg SL PRN PRN PRN Reason: Chest Pain Stop: 01/18/20 09:56 Terazosin HCl (Terazosin Hcl 1 Mg Cap) 2 mg PO HS ON LICENSE OF [facility] Stop: 01/18/20 20:59 Last Admin: 12/19/19 20:15 Dose: 2 mg Documented by: (1) Diarrhea Diarrhea type: unspecified type Qualified Code(s): R19.7 - Diarrhea, unspecified
[2019-12-20] MEDS: INSULIN ASPART 100 UNITS/ML 3 ML PEN SC SCH ×4 (09:02→21:35)
[2019-12-20] MEDS: PANTOprazole 40 MG in SYRINGE 0 ML IV SCH ×2 (09:06→21:43)
[2019-12-20] MEDS: COLESTIPOL HCL 1 GM TAB PO SCH ×2 (09:06→21:43)
--- NOTE | 2019-12-20 10:14 | Pharmacy Report ---
Glycemic Control Consultation - Date of Service December 20, 2019 - Scope Scope: Glycemic Pharmacist consulted for glycemic control and to write orders per [facility] inpatient glycemic control protocol. - Objective Weight: 114.4 kg Accuchecks BSG (last 24hrs): 12/19/19 12/19/19 12/19/19 09:50 16:08 17:53 Glucose 85 72 POC Glucose 178 H 12/19/19 12/19/19 12/19/19 19:53 22:36 23:02 Glucose 122 H POC Glucose 105 H 144 H 12/20/19 12/20/19 02:29 07:40 Glucose 73 POC Glucose 114 H Laboratory Data (last 24hrs): 12/19/19 12/19/19 12/19/19 09:50 16:08 19:53 Potassium 6.2 H* 5.9 H 6.0 H Carbon Dioxide 13 L 17 L 19 L Anion Gap 8.0 6.0 5.0 Creatinine 2.75 H 2.56 H 2.40 H Est Cr Clr Drug Dosing 30.0 32.2 34.2 12/20/19 02:29 Potassium 4.9 D Carbon Dioxide 20 L Anion Gap 6.0 Creatinine 2.23 H Est Cr Clr Drug Dosing 36.8 HbA1c: Hemoglobin A1c 6.7 % (4.5-5.6) H 12/20/19 02:29 - Recent Pertinent Medications Outpatient Anti-diabetic Regimen: * Lantus 25 units SQ Daily * Novolog 6 units with dinner * Glipizide XL 10mg daily * A1c = 6.7 % 12/20/19 Risk Factors for Insulin Resistance: * IVF: Bicarb drip at 100cc/hr * Diet: NPO - Assessment & Plan Assessment & Plan: ASSESSMENT: * 73-year-old male PMH of CAD, intermittent complete heart block, type 2 DM, HTN, CKD stage III, presenting with generalized weakness, cardiology and GI consults. * A1c at goal, blood sugars at goal as inpatient, on basal + bolus + orals at home, will continue to hold basal at this time while only on clears with minimal CHO intake and resume when diet resumes. * Hold Oral agents, not recommended for inpatient use d/t drug interactions, changing PO intake, and difficulty titrating for acute hyper/hypoglycemia. * Slightly higher goal range for blood sugar to prevent hypoglycemia. PLAN FOR INPATIENT GLYCEMIC CONTROL: * Holding outpatient oral diabetes medications * Basal insulin * Lantus 0-25 units SQ HS based on BSG * 0 units for BSG < 120mg/ld * 12 units for BSG 120-180mg/ld * 25 units for BSG > 180mg/dl * Bolus insulin * NovoLog per scale ACHS or Q6hrs while NPO * Goal Range: Low 120 mg/dL - High 150 mg/dL * Correction Factor: 30 mg/dL/unit * Nutritional / Prandial insulin per carb ratio of 1 unit per 10 grams CHO consumed * Please note that the plan above was derived based on current level of insulin resistance and hospital stress. These recommendations are appropriate for inpatient admission only. Plan of care upon discharge will need to be reassessed to avoid potential outpatient hypo/hyperglycemia. Thank you.
--- NOTE | 2019-12-20 10:48 | Urology Consultation ---
Date of Consultation December 20, 2019 Assessment & Plan (1) Kidney disease: (2) Lesion of bladder: Discussed at length with patient findings and concerns. Discussed imaging for bladder. Discussed limitations for termination of abnormalities within the bladder. Discussed option such as cystoscopy. Discussed office cystoscopy. Discussed risk and benefits. Discussed concerns and issues. Discussed patient's other concerns and issues. Currently he is mainly worried about his GI and upper GI issues. He is currently undergoing work-up for them. He also has some heart and lung related issues that he is being worked up for and states that he thinks he needs to get a pacemaker. We will plan to have patient follow-up in the next month to have an office cystoscopy. We will finalize assessment at that time. And will proceed from there. Patient understands and is agreeable. We will plan for that follow-up at that time. Patient complicated medical and surgical history was reviewed and summarized above. All imaging was reviewed/interpreted by myself. History of Present Illness Attending Physician: Amelie Israel, History of Present Illness Consult for patient admitted with GI issues. Subsequently incidentally found to have a bladder lesion. Patient has minor occasional urinary issues with microscopic hematuria. Patient has mild to moderate discomfort in pelvis and groin going to back and side in waves. Is dealing with acute illness related to major GI and upper GI issues. Has been deconditioned from this. Has decreased mobility significantly with acute issues. Denies significant previous episodes of hematuria. Is still able to void. Has had multiple work-ups for GI issues in the past. Has had some minor urinary issues in the past. No severe nausea or vomiting. Currently no fevers. No significant family history of malignancy. Patient thinks that he he may have had something similar on imaging a few years ago. Ne sophia had full work-up due to major other GI issues Allergies Allergy/AdvReac Type Severity Reaction Status Date / Time Beta-Blockers Allergy Unknown . Unverified 12/19/19 10:49 (Beta-Adrenergic Bloc Penicillins Allergy Unknown . Unverified 12/19/19 10:49 tetracycline Allergy Unknown . Unverified 12/19/19 10:49 Home Medications Home Medications Medication Instructions Recorded Confirmed Type allopurinol 200 mg PO HS 12/19/19 12/19/19 History amlodipine 10 mg PO HS 12/19/19 12/19/19 History aspirin 81 mg PO HS 12/19/19 12/19/19 History atorvastatin 40 mg PO HS 12/19/19 12/19/19 History ergocalciferol (vitamin D2) 1,250 mcg PO MONTHLY 12/19/19 12/19/19 History furosemide 40 - 60 mg PO DIRECTED 12/19/19 12/19/19 History glipizide 10 mg PO QAM 12/19/19 12/19/19 History hydralazine 75 mg PO TID 12/19/19 12/19/19 History insulin aspart U-100 [Novolog 6 unit SUBCUT PM 12/19/19 12/19/19 History Flexpen U-100 Insulin] insulin glargine [Lantus Solostar 25 unit SUBCUT DAILY 12/19/19 12/19/19 History U-100 Insulin] isosorbide mononitrate 60 mg PO QAM 12/19/19 12/19/19 History lisinopril 20 mg PO BID 12/19/19 12/19/19 History folgijdl-fwq-BG-lycopen-lutein 1 tab PO DAILY 12/19/19 12/19/19 History [Centrum Silver Men] polyethylene glycol 3350 [Gavilax] 1 g PO DIRECTED PRN 12/19/19 12/19/19 History sodium zirconium cyclosilicate 10 g PO PM 12/19/19 12/19/19 History [Lokelma] spironolactone 25 mg PO QAM 12/19/19 12/19/19 History terazosin 2 mg PO HS 12/19/19 12/19/19 History Patient History Social History Smoking Status: Former smoker Hx Alcohol Use: No Hx Substance Use: No Preferred Language: Setswana Communication Ability: Effective Can Conveyor Feeder Required: No Beliefs That Will Affect Care: None Current Living Situation: Spouse Other Information That Helps Us Care for You: No Feels Safe at Home: Yes Safety Concerns: Feels Safe At This Time Review of Systems Review of Systems: All systems reviewed & are unremarkable except as noted in HPI & below Physical Exam Physical Exam: General: Alert and oriented x 3 in no acute distress. Patient is well nourished and well kept. HEENT: Normocephalic Atraumatic. Inspection normal. Cranial Nerves 2-12 Grossly intact. Nares are clear. Neck is supple. Normal inspection of face. Normal inspection of neck. Neurologic: No deficits on inspection. Baseline for motor function and sensory. Psychologic: Normal affect. Respiratory: Nonlabored. No use of accessory muscles. No tachypnea or dyspnea. Cardiovascular: No tachycardia Skin: [place] and Dry. No rashes or visible lesions. Extremities: Moving without issues. No motor deficits on inspection Lymphatics: No edema Abdomen: Soft Non-distended. No acites. No rebound or guarding. Results & Data ([facility]) Vital Signs (Past 12 Hours) Vital Signs Temp Pulse Resp BP Pulse Ox 12/20/19 08:14 36.8 C 54 L 18 141/67 H 98 12/20/19 03:48 36.8 C 49 L 20 152/61 H 96 12/20/19 01:38 36.6 C 60 18 162/63 H 98 12/19/19 23:51 36.6 C 50 L 16 130/65 98 PG Care Time/CCT Total # of Minutes Spent Total Time Spent with Patient: Total time spent is greater than 50% in coordination of care (as documented) at patient's floor/unit and/or counseling patient: Coding Level of Care Code 88358 Inpt Consult Level 5 Diagnoses Kidney disease N28.9 Lesion of bladder N32.9
[2019-12-20] MEDS: ISOSORBIDE MONO EXTENDED REL 60 MG TABCR PO SCH (11:17)
--- NOTE | 2019-12-20 13:09 | Electrocardiogram Report ---
Test Reason : Blood Pressure : / mmHG Vent. Rate : 053 BPM Atrial Rate : 053 BPM P-R Int : 512 ms QRS Dur : 082 ms QT Int : 404 ms P-R-T Axes : 000 -26 054 degrees QTc Int : 379 ms Sinus bradycardia with 1st degree A-V block Low voltage QRS Inferior infarct (cited on or before 04-APR-2017) Cannot rule out Anterior infarct , age undetermined Abnormal ECG When compared with ECG of 19-DEC-2019 10:15, Sinus rhythm is no longer with 2nd degree A-V block (Mobitz I) Minimal criteria for Anterior infarct are now Present Confirmed by Jose Bird ([id number] on 12/20/2019 1:09:18 PM Referred By: REFERRED SELF Confirmed By:Jose Bird
--- NOTE | 2019-12-20 14:40 | Hospitalist Progress Note ---
Date of Service December 20, 2019 Assessment & Plan (1) Weakness: Improved as he is abulatin lyubov his own. PT and OT formal evaluations ordered. (2) Acute hyperkalemia: Medication-induced, Reversed to 4.9 with treatment overnight. Continued management per Nephrology. (3) Acute on chronic renal failure: No need for acute dialysis per Nephro. This is improving with current treatment. Cont holding ACEI and diuretics. IVF per Neprho (4) Diarrhea: resolved (5) Lesion of bladder: urology consulted and plans for outpatient cystoscopy in office within the next few weeks. (6) Bradycardia: intermittent block on telemetry. Pacemaker consideration currently. Avoid AV jase blockers. Cardiology will wait until renal issues are turned around prior to strong consideration for in house pacemaker. Pt is not symptomatic at this time. (7) Diabetes: Basal/bolus insulin while hospitalized. Appreciate glycemic pharmacy management. (8) DVT prophylaxis: SCDs (add heparin) Full Code Dispo-plan for home when medically stable. PT/OT ordered. Amelie Israel DO [facility] Hospitalist Admission and Anticipated Discharge Date Admission Date: December 19, 2019 Subjective +weakness has resolved mostly and he is ambulating without assistance diarrhea has resolved and produced solid stool today denies abd discomfort. Hungry and asking for solid food. Review of Systems Review of Systems: All systems reviewed & are unremarkable except as noted in Subjective Physical Exam Physical Exam: CONSTITUTIONAL: obese, vitals as above, generally well- appearing EYES: normal conjunctivae, no scleral icterus ENT: external ear and nose normal, oropharynx clear RESPIRATORY: clear to auscultation bilaterally, no crackles, rales or wheezes, normal respiratory effort CARDIOVASCULAR: regular rate and rhythm, S1 and 2 heard without murmurs, gallops or rubs, no JVD, no peripheral edema GASTROINTESTINAL: soft, nontender, nondistended, no guarding. Abdomen protuberant. MUSCULOSKELETAL: strength 5/5 throughout, head is normocephalic and atraumatic SKIN: warm and dry NEUROLOGIC: CN 2-12 grossly intact, no sensory deficit, normal cognition, normal speech, no tremor, no gross neurologic deficits. PSYCHIATRIC: alert cooperative and oriented to person, place and time. Results & Data Results & Data ([facility]) Vital Signs (Past 12 Hours) Vital Signs Temp Pulse Pulse Resp BP Pulse Ox 12/20/19 12:00 36.9 C 60 16 159/60 H 96 12/20/19 11:11 40 L 12/20/19 08:14 36.8 C 54 L 18 141/67 H 98 12/20/19 03:48 36.8 C 49 L 20 152/61 H 96 Laboratory Results Short CBC 12/20/19 Range/Units 02:29 WBC 7.66 (4.8-10.8) K/uL Hgb 11.3 L (14.0-18.0) g/dL Hct 33.7 L (42-52) % Plt Count 88 L (130-400) K/uL BMP 12/19/19 12/19/19 12/20/19 16:08 19:53 02:29 Sodium 142 143 143 Potassium 5.9 H 6.0 H 4.9 D Chloride 119 H 119 H 117 H Carbon Dioxide 17 L 19 L 20 L BUN 111 H 108 H 104 H Creatinine 2.56 H 2.40 H 2.23 H Glucose 72 122 H 73 Calcium 9.3 8.4 L 8.2 L Cardiac Enzymes 12/19/19 Range/Units 16:08 Troponin I < 0.015 (0-0.045) ng/ml Liver Function 12/20/19 Range/Units 02:29 Albumin 3.0 L (3.4-5.0) gm/dl Urine 12/19/19 Range/Units 15:15 Urine Color Yellow Urine Appearance Clear (Clear) Urine pH 5.0 (4.5-7.5) Ur Specific [place] 1.015 (1.000-1.030) Urine Protein Negative (Negative) Urine Glucose (UA) Negative (Negative) Medications Administered Current Inpatient Medications Allopurinol (Allopurinol 100 Mg Tab) 50 mg PO Q2D@2100 [facility] Stop: 01/18/20 20:59 Last Admin: 12/19/19 20:16 Dose: 50 mg Documented by: Atorvastatin Calcium (Atorvastatin 40 Mg Tab) 40 mg PO HS [facility] Stop: 01/18/20 20:59 Last Admin: 12/19/19 20:15 Dose: 40 mg Documented by: Atropine Sulfate (Atropine Sulfate 0.1 Mg/Ml 10ml Syr) 0.5 mg IV Q3M PRN PRN Reason: symptomatic bradycardia Stop: 01/19/20 02:12 Colestipol HCl (Colestipol Hcl 1 Gm Tab) 1 gm PO BID@1000,2200 [facility] Stop: 01/18/20 21:59 Last Admin: 12/20/19 09:06 Dose: 1 gm Documented by: Dextrose (Dextrose 50% 50 Ml Syringe) 25 - 50 ml IV UD PRN; Protocol PRN Reason: Hypoglycemia Protocol Stop: 01/18/20 16:44 Glucagon (Glucagon For Inj 1 Mg Vial) 1 mg IM UD PRN; Protocol PRN Reason: Hypoglycemia Protocol Stop: 01/18/20 16:44 Glucose (Glucose 40% Gel 15 Gm Tube) 15 - 30 gm PO UD PRN; Protocol PRN Reason: Hypoglycemia Protocol Stop: 01/18/20 16:44 Glucose (Glucose 10 Tabs/Tube) 4 - 8 tabs PO UD PRN; Protocol PRN Reason: Hypoglycemia Protocol Stop: 01/18/20 16:44 Sodium Bicarbonate 150 meq/ (Dextrose) 1,150 mls @ 100 mls/hr IV .[id number] [facility] Stop: 01/18/20 15:29 Last Admin: 12/20/19 06:04 Dose: 100 mls/hr Documented by: Pantoprazole Sodium 40 mg/ (Syringe) 10 mls @ 5 mls/min IV Q12 [facility] Stop: 01/18/20 16:59 Last Admin: 12/20/19 09:06 Dose: 5 mls/min Documented by: Insulin Aspart (Insulin Aspart 100 Units/Ml 3 Ml Pen) 0 units SC ACHS [facility] Stop: 01/18/20 16:59 Last Admin: 12/20/19 12:21 Dose: 4 units Documented by: Insulin Glargine (Insulin Glargine Solostar 100 Units/Ml 3 Ml Pen) 0 units SC HS [facility]; Protocol Stop: 01/19/20 20:59 Isosorbide Mononitrate (Isosorbide [place] Extended Rel 60 Mg Tabcr) 60 mg PO QAM [facility] Stop: 01/19/20 08:59 Last Admin: 12/20/19 11:17 Dose: 60 mg Documented by: Loperamide HCl (Loperamide Hcl 2 Mg Cap) 2 mg PO UD PRN PRN Reason: Diarrhea Stop: 01/18/20 16:01 Miscellaneous (Carbohydrates For Hypoglycemia ) 15 - 30 gm PO UD PRN PRN Reason: Hypoglycemia Treatment Stop: 01/18/20 16:44 Miscellaneous Information (Pharmacy Glycemic Mgmt Consult) 1 ea N/A UD PRN PRN Reason: Consult Stop: 01/18/20 16:22 Nitroglycerin (Nitroglycerin Sl 0.4 Mg/Tab Tab) 0.4 mg SL PRN PRN PRN Reason: Chest Pain Stop: 01/18/20 09:56 Terazosin HCl (Terazosin Hcl 1 Mg Cap) 2 mg PO HS [facility] Stop: 01/18/20 20:59 Last Admin: 12/19/19 20:15 Dose: 2 mg Documented by: (1) Diarrhea Diarrhea type: unspecified type Qualified Code(s): R19.7 - Diarrhea, unspecified
--- NOTE | 2019-12-20 18:17 | Nephrology Consultation ---
Date of Consultation December 20, 2019 Assessment & Plan (1) Acute on chronic renal failure: Baseline creatinine 1.8-2.1. Presenting creatinine 2.8, improved to 2.2 this morning. Diarrhea has stopped, weakness improving. Presenting urine sediment bland. Prerenal acute kidney injury in the setting of diarrhea. Diarrhea has stopped and patient is clinically improving. Chemistries normali zing. Volume status acceptable. No indication for acute dialysis. No evidence bladder lesion has role in acute renal failure Repeat labs now and reassess indication if any for going IV fluids Continue to hold CHINO inhibitor, spironolactone, loop diuretic Strict ins and outs Daily basic metabolic panel Continue dialysis/renal diet for now Present on Admission?: Yes (2) Acute hyperkalemia: Medication related and medically managed. Normalized potassium today after 2 rounds of IV insulin and some bicarbonate, Lasix. Recheck status with repeat labs and decide about continuing bicarb drip overnight; hope to be able to stop IV fluids this evening Present on Admission?: Yes (3) Bradycardia: History of intermittent complete heart block while sleeping; cardiology following; pacer under consideration Present on Admission?: Yes (4) HTN (hypertension): Some permissive hypertension today while getting IV fluids and blood pressure medications on hold. Continue to monitor Present on Admission?: Yes History of Present Illness Reason for Consultation: hyperkalemia and ANNEMARIE on CKD Requesting Physician: Dr Farrell Attending Physician: Amelie Israel, DO History of Present Illness 74-year-old male admitted yesterday for generalized weakness abdominal discomfort and diarrhea in the setting of hyperkalemia. He follows with me in CKD clinic for proteinuric advanced CKD 3 treated to longstanding diabetes, often uncontrolled hypertension, diffuse macro microvascular disease. Past medical history includes diabetes with retinopathy since at least 2004, 2005 parietal stroke, hypertension, heart failure with preserved ejection fraction, intermittent degree AV block follows with Dr. Mcbride, NIKOS on CPAP, hyperlipidemia, peripheral arterial disease. Past surgical history includes ablation for bradycardia at [place] in 2012 and colonoscopy 05/2017 with 3 adenomatous polyps. He has been having lightheadedness for some time intermittently but this worsened in the past week when he also developed worsening diarrhea decreased oral intake. He stopped his potassium binder (lokelma) for several days then resumed it; only started this med in spring; finds it constipates him. He had 3-6 watery BM daily for 2-3 days before coming in and minimal po intake. His presenting potassium was 6.2, managed initially with insulin and bicarbonate. Presenting creatinine was 2.8; his baseline creatinine as an outpatient is actually 1.8 to 2.1 since December of last year. I have been following his care since arrival. We started him on a bicarb drip in the ER. Last evening he had more IV insulin and some Lasix in addition to continuing bicarb drip. This morning potassium improved to 4.9 with bicarb up to 20 from 13 on admission and creatinine at 2.2. He is on a liquid diet and is hungry. Has had one small solid BM since arrival. His heart rate has been ranging 30-50s. Given above cardiac hx, cardiology consulted and pacemaker placment this admission is under consideration. Noted as well to have bladder n odule on imaging and urology evaluated, recommends OP cystoscopy. Allergies Allergy/AdvReac Type Severity Reaction Status Date / Time Beta-Blockers Allergy Unknown . Unverified 12/19/19 10:49 (Beta-Adrenergic Bloc Penicillins Allergy Unknown . Unverified 12/19/19 10:49 tetracycline Allergy Unknown . Unverified 12/19/19 10:49 Home Medications Home Medications Medication Instructions Recorded Confirmed Type allopurinol 200 mg PO HS 12/19/19 12/19/19 History amlodipine 10 mg PO HS 12/19/19 12/19/19 History aspirin 81 mg PO HS 12/19/19 12/19/19 History atorvastatin 40 mg PO HS 12/19/19 12/19/19 History ergocalciferol (vitamin D2) 1,250 mcg PO MONTHLY 12/19/19 12/19/19 History furosemide 40 - 60 mg PO DIRECTED 12/19/19 12/19/19 History glipizide 10 mg PO QAM 12/19/19 12/19/19 History hydralazine 75 mg PO TID 12/19/19 12/19/19 History insulin aspart U-100 [Novolog 6 unit SUBCUT PM 12/19/19 12/19/19 History Flexpen U-100 Insulin] insulin glargine [Lantus Solostar 25 unit SUBCUT DAILY 12/19/19 12/19/19 History U-100 Insulin] isosorbide mononitrate 60 mg PO QAM 12/19/19 12/19/19 History lisinopril 20 mg PO BID 12/19/19 12/19/19 History pczchmmy-iwh-ZF-lycopen-lutein 1 tab PO DAILY 12/19/19 12/19/19 History [Centrum Silver Men] polyethylene glycol 3350 [Gavilax] 1 g PO DIRECTED PRN 12/19/19 12/19/19 History sodium zirconium cyclosilicate 10 g PO PM 12/19/19 12/19/19 History [Lokelma] spironolactone 25 mg PO QAM 12/19/19 12/19/19 History terazosin 2 mg PO HS 12/19/19 12/19/19 History Patient History Family History Father Diabetes Coronary heart disease Social History Smoking Status: Former smoker Hx Alcohol Use: No Hx Substance Use: No Preferred Language: Lithuanian Communication Ability: Effective Bathhouse Keeper Required: No Beliefs That Will Affect Care: None Current Living Situation: Spouse Other Information That Helps Us Care for You: No Feels Safe at Home: Yes Safety Concerns: Feels Safe At This Time Review of Systems Review of Systems: All systems reviewed & are unremarkable except as noted in HPI & below Physical Exam Constitutional: well developed, well nourished, + obese and cooperative; no acute distress Eyes: EOM intact bilaterally ENMT: Ears: no external ear abnormality Nose: no external nose abnormality Mouth: + dry oral mucous membranes Neck: no nuchal rigidity Respiratory: normal respiratory effort Auscultation: lungs clear to au scultation bilaterally and + diminished lung sounds Cardiovascular: Rate/Rhythm: + bradycardic Extremities: + edema (at most trace BLE) Gastrointestinal (Abdomen): Inspection/Auscultation: normal bowel sounds Percussion/Palpation: abdomen soft; abdomen nontender Musculoskeletal: Extremities: strength 5/5 throughout Skin: no rashes, warm and dry Neurologic: gomez, fluent speech, no tremor Psychiatric: Orientation: alert and oriented x 3 Speech: normal rate/rhythm/volume of speech Affect: + anxious affect and + tearful affect Results & Data ([facility]) Vital Signs (Past 12 Hours) Vital Signs Temp Pulse Pulse Resp BP Pulse Ox 12/20/19 16:08 39 L 12/20/19 15:10 36.8 C 40 L 18 154/61 H 96 12/20/19 12:00 36.9 C 60 16 159/60 H 96 12/20/19 11:11 40 L 12/20/19 08:14 36.8 C 54 L 18 141/67 H 98 Laboratory Results 12/20/19 02:29 12/20/19 02:29 Urinalysis: Specific gravity 1015 clear yellow urine with negative indices on dipstick and no microscopy Diagnostic Findings ct non con abd pelvis 1. The kidneys demonstrate cortical atrophy and are without hydronephrosis. 2. There is a 1.8 cm nodule arising from the anterior right wall of the bladder near the dome. Bladder neoplasm is the diagnosis of exclusion and follow-up with urology is recommended. 3. Prostatomegaly with evidence of chronic bladder outlet obstruction. 4. Prominent left inguinal lymph nodes may be on a reactive basis. Clinical correlation will be required. 5. Moderate colonic diverticulosis without CT evidence of acute diverticulitis. 6. Advanced coronary artery calcification. 7. Additional findings as above. cxr no acute CP findings
[2019-12-20 18:50] LABS: BUN Creatinine Ratio 38.3 (10-20); Calcium 8.3 mg/dl (8.5-10.1); Creatinine Clr Calc Pharmacy 37.8 ml/min; Est GFR (Non-African American) 29.3; Potassium 5.1 mmol/L (3.5-5.1)
[2019-12-20 19:00] LABS: Beta-Hydroxybutyrate 0.75 mg/dl (0.2-2.81)
[2019-12-20] MEDS ORDERED: INSULIN GLARGINE SOLOSTAR 100 UNITS/ML 3 ML PEN SC ONE (19:00)
[2019-12-20] MEDS ORDERED: INSULIN GLARGINE SOLOSTAR 100 UNITS/ML 3 ML PEN SC SCH (21:00)
[2019-12-20] MEDS: TERAZOSIN HCL 1 MG CAP PO SCH (21:29)
[2019-12-20] MEDS: ATORVASTATIN 40 MG TAB PO SCH (21:30)
[2019-12-21] MEDS: SODIUM BICARBONATE 8.4% 150 MEQ in DEXTROSE 5% 1,000 ML IV SCH (05:28)
[2019-12-21] MEDS: ISOSORBIDE MONO EXTENDED REL 60 MG TABCR PO SCH (08:09)
[2019-12-21] MEDS: PANTOprazole 40 MG in SYRINGE 0 ML IV SCH ×2 (08:09→20:42)
[2019-12-21] MEDS: INSULIN ASPART 100 UNITS/ML 3 ML PEN SC SCH ×4 (08:10→20:42)
--- NOTE | 2019-12-21 10:01 | Electrocardiogram Report ---
Test Reason : Blood Pressure : / mmHG Vent. Rate : 043 BPM Atrial Rate : 043 BPM P-R Int : 552 ms QRS Dur : 086 ms QT Int : 448 ms P-R-T Axes : -14 -29 035 degrees QTc Int : 378 ms Marked sinus bradycardia with 1st degree A-V block Inferior infarct (cited on or before 04-APR-2017) Possible Anterior infarct (cited on or before 19-DEC-2019) Abnormal ECG When compared with ECG of 19-DEC-2019 22:16, No significant change was found Confirmed by Jose Bird ([id number]) on 12/21/2019 10:01:10 AM Referred By: REFERRED SELF Confirmed By:Joes Bird
--- NOTE | 2019-12-21 10:20 | Cardiology Progress Note ---
Date of Service December 21, 2019 Assessment & Plan (1) Kidney disease: (2) Acute hyperkalemia: (3) Diarrhea: (4) Bradycardia: Nephrology consult is appreciated. The patient continues to be bradycardic on the monitor and at times having greater than 3-second pauses. I will speak to the EP service tomorrow regarding a permanent pacemaker. I think the patient is agreeable to proceeding to that surgery before discharge. Admission and Anticipated Discharge Date Admission Date: December 19, 2019 Subjective The patient is generally feeling well today. He was allowed to start a diet. That has made him happy. Review of Systems Review of Systems: All systems reviewed & are unremarkable except as noted in HPI & below Nothing additional to add. Physical Exam Physical Exam: General: no acute distress and stated age Head: normocephalic, no masses, lesions, tenderness or abnormalities Eyes: conjunctiva are pink and non-injected, sclera clear Neck: supple, no adenopathy, no bruits, normal jugular venous pulse, no hepatojugular reflux Chest: normal shape and normal respiratory effort Lungs: clear to auscultation and percussion Cardiac Exam: - regular rate & rhythm, no murmurs gallops or rubs - normal S1, normal S2 Pulses: 2(+) throughout Abdomen: abdomen soft, non-tender, no abnormal masses and no hepatosplenomegaly Musculoskeletal: no gait disturbance, no joint inflammation, no deforming arthritis Extremities: no edema and no cyanosis Neuro: grossly normal exam Results & Data ([facility]) Vital Signs (Past 12 Hours) Vital Signs Temp Pulse Pulse Resp BP Pulse Ox 12/21/19 07:38 39 L 12/21/19 07:28 36.7 C 18 159/64 H 94 12/21/19 07:00 30 L 12/21/19 03:53 36.7 C 37 L 19 143/57 H 95 12/20/19 23:31 36.8 C 47 L 16 170/70 H 96 12/20/19 22:51 40 L Laboratory Results Laboratory Results - last 24 hr 12/20/19 12/20/19 12/20/19 11:22 16:11 18:06 Sodium 140 Potassium 5.1 Chloride 110 H Carbon Dioxide 25 Anion Gap 5.0 BUN 83 H Creatinine 2.17 H Est Cr Clr Drug Dosing 37.8 Est GFR ( Amer) 34.0 Est GFR (Non-Af Amer) 29.3 BUN/Creatinine Ratio 38.3 H Glucose 320 H* POC Glucose 162 H 289 H Calcium 8.3 L Beta-Hydroxybutyric Acd 0.75 12/20/19 12/21/19 20:12 07:31 Sodium Potassium Chloride Carbon Dioxide Anion Gap BUN Creatinine Est Cr Clr Drug Dosing Est GFR ( Amer) Est GFR (Non-Af Amer) BUN/Creatinine Ratio Glucose POC Glucose 154 H 166 H Calcium Beta-Hydroxybutyric Acd Medications Administered Current Inpatient Medications Allopurinol (Allopurinol 100 Mg Tab) 50 mg PO Q2D@2100 [facility] Stop: 01/18/20 20:59 Last Admin: 12/19/19 20:16 Dose: 50 mg Documented by: Atorvastatin Calcium (Atorvastatin 40 Mg Tab) 40 mg PO HS [facility] Stop: 01/18/20 20:59 Last Admin: 12/20/19 21:30 Dose: 40 mg Documented by: Atropine Sulfate (Atropine Sulfate 0.1 Mg/Ml 10ml Syr) 0.5 mg IV Q3M PRN PRN Reason: symptomatic bradycardia Stop: 01/19/20 02:12 Colestipol HCl (Colestipol Hcl 1 Gm Tab) 1 gm PO BID@1000,2200 [facility] Stop: 01/18/20 21:59 Last Admin: 12/20/19 21:43 Dose: 1 gm Documented by: Dextrose (Dextrose 50% 50 Ml Syringe) 25 - 50 ml IV UD PRN; Protocol PRN Reason: Hypoglycemia Protocol Stop: 01/18/20 16:44 Glucagon (Glucagon For Inj 1 Mg Vial) 1 mg IM UD PRN; Protocol PRN Reason: Hypoglycemia Protocol Stop: 01/18/20 16:44 Glucose (Glucose 40% Gel 15 Gm Tube) 15 - 30 gm PO UD PRN; Protocol PRN Reason: Hypoglycemia Protocol Stop: 01/18/20 16:44 Glucose (Glucose 10 Tabs/Tube) 4 - 8 tabs PO UD PRN; Protocol PRN Reason: Hypoglycemia Protocol Stop: 01/18/20 16:44 Sodium Bicarbonate 150 meq/ (Dextrose) 1,150 mls @ 100 mls/hr IV .[id number] [facility] Stop: 01/18/20 15:29 Last Admin: 12/21/19 05:28 Dose: 100 mls/hr Documented by: Pantoprazole Sodium 40 mg/ (Syringe) 10 mls @ 5 mls/min IV Q12 [facility] Stop: 01/18/20 16:59 Last Admin: 12/21/19 08:09 Dose: 5 mls/min Documented by: Insulin Aspart (Insulin Aspart 100 Units/Ml 3 Ml Pen) 0 units SC ACHS [facility] Stop: 01/18/20 16:59 Last Admin: 12/21/19 08:10 Dose: 5 units Documented by: Insulin Glargine (Insulin Glargine Solostar 100 Units/Ml 3 Ml Pen) 20 units SC DAILY [facility]; Protocol Stop: 01/20/20 11:29 Isosorbide Mononitrate (Isosorbide [place] Extended Rel 60 Mg Tabcr) 60 mg PO QAM [facility] Stop: 01/19/20 08:59 Last Admin: 12/21/19 08:09 Dose: 60 mg Documented by: Loperamide HCl (Loperamide Hcl 2 Mg Cap) 2 mg PO UD PRN PRN Reason: Diarrhea Stop: 01/18/20 16:01 Miscellaneous (Carbohydrates For Hypoglycemia ) 15 - 30 gm PO UD PRN PRN Reason: Hypoglycemia Treatment Stop: 01/18/20 16:44 Miscellaneous Information (Pharmacy Glycemic Mgmt Consult) 1 ea N/A UD PRN PRN Reason: Consult Stop: 01/18/20 16:22 Nitroglycerin (Nitroglycerin Sl 0.4 Mg/Tab Tab) 0.4 mg SL PRN PRN PRN Reason: Chest Pain Stop: 01/18/20 09:56 Terazosin HCl (Terazosin Hcl 1 Mg Cap) 2 mg PO HS [facility] Stop: 01/18/20 20:59 Last Admin: 12/20/19 21:29 Dose: 2 mg Documented by: (1) Diarrhea Diarrhea type: unspecified type Qualified Code(s): R19.7 - Diarrhea, unspecified
[2019-12-21] MEDS: COLESTIPOL HCL 1 GM TAB PO SCH ×2 (10:35→22:29)
[2019-12-21 10:38] LABS: Hematocrit (blood only) 33.2 % (42-52); Hemoglobin 11.4 g/dL (14.0-18.0); Mean Corpuscular Hemoglobin 30.8 pg (25-34); Mean Corpuscular Hgb Conc 34.3 g/dL (32-36); Mean Corpuscular Volume 89.7 fL (80-100); Platelet Count 90 K/uL (130-400); RDW Coefficient of Variation 14.2 % (11.5-14.5); RDW Standard Deviation 46.4 fL (36.4-46.3); White Blood Count 6.71 K/uL (4.8-10.8)
[2019-12-21 11:01] LABS: BUN Creatinine Ratio 37.3 (10-20); Calcium 8.1 mg/dl (8.5-10.1); Creatinine Clr Calc Pharmacy 44.1 ml/min; Est GFR (Non-African American) 35.4; Magnesium 2.3 mg/dl (1.8-2.4)
[2019-12-21 11:09] LABS: Phosphorus 2.6 mg/dl (2.5-4.9)
[2019-12-21] MEDS ORDERED: INSULIN GLARGINE SOLOSTAR 100 UNITS/ML 3 ML PEN SC SCH ×2 (11:30)
--- NOTE | 2019-12-21 12:53 | Nephrology Progress Note ---
Date of Service December 21, 2019 Assessment & Plan (1) Acute on chronic renal failure: Baseline creatinine 1.8-2.1. Presenting creatinine 2.8, improved to 2.2 12/19, then 1.8 this morning. Diarrhea has stopped, weakness improving. Presenting urine sediment bland. Prerenal acute kidney injury in the setting of diarrhea. Diarrhea has stopped and patient is clinically improving. Chemi stries normalizing though K still high normal. Volume status acceptable. No indication for acute dialysis. No evidence bladder lesion has role in acute renal failure changed bicarb gtt to hypotonic, lower rate >> hope to keep K controlled, cont to improve chloride but be more BP neutral Continue to hold CHINO inhibitor, spironolactone, loop diuretic Strict ins and outs Daily basic metabolic panel Continue dialysis/renal diet for now (2) Acute hyperkalemia: improved. Medication related and medically managed. Normalized potassium after 2 rounds of IV insulin and some bicarbonate, Lasix. IVF as above, daily bmp, low K diet (3) Bradycardia: Ongoing and with >3s monitor pauses>> History of intermittent complete heart block while sleeping; cardiology recommends pacer this admission (4) HTN (hypertension): Some permissive hypertension while getting IV fluids and blood pressure medications on hold. Continue to monitor; modified IVF as above Admission and Anticipated Discharge Date Admission Date: December 19, 2019 Subjective feels further improved; still with bradycardia and some >3s pauses; tolerating po; no further diarrhea or constipation; at bedside Review of Systems Review of Systems: All systems reviewed & are unremarkable except as noted in HPI & below Physical Exam Constitutional: well developed, well nourished, + obese and cooperative; no acute distress sitting on side of bed on RA Eyes: EOM intact bilaterally ENMT: Ears: no external ear abnormality Nose: no external nose abnormality Mouth: + dry oral mucous membranes Neck: no nuchal rigidity Respiratory: normal respiratory effort Auscultation: lungs clear to auscultation bilaterally and + diminished lung sounds Cardiovascular: Rate/Rhythm: + bradycardic Extremities: + edema (at most trace BLE) Gastrointestinal (Abdomen): Inspection/Auscultation: normal bowel sounds Percussion/Palpation: abdomen soft; abdomen nontender Musculoskeletal: Extremities: strength 5/5 throughout Skin: no rashes, warm and dry Neurologic: gomez, fluent speech, no tremor Psychiatric: Orientation: alert and oriented x 3 Speech: normal rate/rhythm/volume of speech Affect: + anxious affect and + tearful affect Results & Data ([facility]) Vital Signs (Past 12 Hours) Vital Signs Temp Pulse Pulse Resp BP Pulse Ox 12/21/19 11:13 36.7 C 41 L 18 160/73 H 96 12/21/19 07:38 39 L 12/21/19 07:28 36.7 C 18 159/64 H 94 12/21/19 07:00 30 L 12/21/19 03:53 36.7 C 37 L 19 143/57 H 95 Laboratory Results 12/21/19 10:27 12/21/19 10:27
[2019-12-21] MEDS: SODIUM BICARBONATE 8.4% 75 MEQ in DEXTROSE 5% 1,000 ML IV SCH (13:32)
[2019-12-21] MEDS ORDERED: HEPARIN SOD 5,000 UNIT/0.5 ML VIAL SQ SCH (14:00)
--- NOTE | 2019-12-21 14:45 | Pharmacy Report ---
Pharmacy Glycemic Short Note 2 - Date of Service December 21, 2019 - Glycemic Short BSG Results (Last 24 hours): 12/20/19 12/20/19 12/20/19 16:11 18:06 20:12 Glucose 320 H* POC Glucose 289 H 154 H 12/21/19 12/21/19 12/21/19 07:31 10:27 11:07 Glucose 213 H POC Glucose 166 H 226 H OUTPATIENT ANTIDIABETIC REGIMEN: * Lantus 25 units SQ Daily * Novolog 6 units with dinner * Glipizide XL 10mg daily * A1c = 6.7 % 12/20/19 ASSESSMENT: * Kenny received 40 units of insulin yesterday * 20 units basal * 20 units bolus * BSGs ranging from 114 - 320 mg/dL * Diet advanced this morning. Scr continues to trend downward * Fasting BSG of 166 mg/dL is above goal. This is likely because Lantus administration was delayed to dinner yesterday. * Post prandial BSGs became elevated yesterday after diet was advanced. Will tighten Novolog CF and CR. PLAN FOR INPATIENT GLYCEMIC CONTROL: * Hold outpatient oral diabetes medications * Basal insulin * Lantus 25 units SQ daily (given with lunch today, will resume qAM dosing on 12/21) * Bolus insulin - tighten * NovoLog per scale ACHS or Q6hrs while NPO * Goal Range: Low 120 mg/dL - High 150 mg/dL * Correction Factor: 18 mg/dL/unit * Nutritional / Prandial insulin per carb ratio of 1 unit per 6 grams CHO consumed thank you
--- NOTE | 2019-12-21 18:30 | Hospitalist Progress Note ---
Date of Service December 21, 2019 Assessment & Plan (1) Weakness: improved, moving around independently. PT/OT evals ordered. (2) Acute hyperkalemia: Medication-induced, Reversed to 4.9 with treatment overnight. Today is 5.0. Cont Nephrology management and renal diet. (3) Acute on chronic renal failure: No need for acute dialysis per Nephro. This is improving to 1.8 today with current treatment. Cont holding ACEI and diuretics. IVF per Nephro. Cont bicarb drip. (4) Diarrhea: resolved (5) Lesion of bladder: urology consulted and plans for outpatient cystoscopy in office within the next few weeks. (6) Bradycardia: intermittent block on telemetry with 4-5 second pauses. NPO p MN for possible pacemaker in am. Also held heparin in preparation for this. Avoid AV jase blockers. Per nephro he is OK to go for pacemaker from her standpoint. (7) Diabetes: Basal/bolus insulin while hospitalized. Appreciate glycemic pharmacy management. (8) DVT prophylaxis: SCDs-heparin held in preparation for PM placement tomorrow. Full Code Dispo-plan for home when medically stable. PT/OT ordered. Amelie Israel DO [facility] Hospitalist Admission and Anticipated Discharge Date Admission Date: December 19, 2019 Subjective Pt eating lunch and feels that the food is going down well. He denies abdominal pain or other symptoms at this time. Review of Systems Review of Systems: All systems reviewed & are unremarkable except as noted in Subjective Physical Exam Physical Exam: CONSTITUTIONAL: obese, vitals as above, generally well- appearing EYES: normal conjunctivae, no scleral icterus ENT: external ear and nose normal, oropharynx clear RESPIRATORY: clear to auscultation bilaterally, no crackles, rales or wheezes, normal respiratory effort CARDIOVASCULAR: regular rate and rhythm, S1 and 2 heard without murmurs, gallops or rubs, no JVD, no peripheral edema GASTROINTESTINAL: soft, nontender, nondistended, no guarding. Abdomen protuberant. MUSCULOSKELETAL: strength 5/5 throughout, head is normocephalic and atraumatic SKIN: warm and dry NEUROLOGIC: CN 2-12 grossly intact, no sensory deficit, normal cognition, normal speech, no tremor, no gross neurologic deficits. PSYCHIATRIC: alert cooperative and oriented to person, place and time. Results & Data Results & Data ([facility]) Vital Signs (Past 12 Hours) Vital Signs Temp Pulse Pulse Resp BP Pulse Ox 12/21/19 15:10 36.5 C 46 L 18 149/64 H 98 12/21/19 15:00 49 L 12/21/19 11:13 36.7 C 41 L 18 160/73 H 96 12/21/19 07:38 39 L 12/21/19 07:28 36.7 C 18 159/64 H 94 12/21/19 07:00 30 L Laboratory Results Short CBC 12/21/19 Range/Units 10:27 WBC 6.71 (4.8-10.8) K/uL Hgb 11.4 L (14.0-18.0) g/dL Hct 33.2 L (42-52) % Plt Count 90 L (130-400) K/uL BMP 12/20/19 12/21/19 18:06 10:27 Sodium 140 141 Potassium 5.1 5.0 Chloride 110 H 109 H Carbon Dioxide 25 30 BUN 83 H 69 H Creatinine 2.17 H 1.86 H D Glucose 320 H* 213 H Calcium 8.3 L 8.1 L Medications Administered Current Inpatient Medications Allopurinol (Allopurinol 100 Mg Tab) 50 mg PO Q2D@2100 [facility] Stop: 01/18/20 20:59 Last Admin: 12/19/19 20:16 Dose: 50 mg Documented by: Amlodipine Besylate (Amlodipine Besylate 5 Mg Tab) 10 mg PO HS [facility] Stop: 01/20/20 20:59 Aspirin (Aspirin 81 Mg Ectab) 81 mg PO HS [facility] Stop: 01/20/20 20:59 Atorvastatin Calcium (Atorvastatin 40 Mg Tab) 40 mg PO HS [facility] Stop: 01/18/20 20:59 Last Admin: 12/20/19 21:30 Dose: 40 mg Documented by: Atropine Sulfate (Atropine Sulfate 0.1 Mg/Ml 10ml Syr) 0.5 mg IV Q3M PRN PRN Reason: symptomatic bradycardia Stop: 01/19/20 02:12 Colestipol HCl (Colestipol Hcl 1 Gm Tab) 1 gm PO BID@1000,2200 [facility] Stop: 01/18/20 21:59 Last Admin: 12/21/19 10:35 Dose: 1 gm Documented by: Dextrose (Dextrose 50% 50 Ml Syringe) 25 - 50 ml IV UD PRN; Protocol PRN Reason: Hypoglycemia Protocol Stop: 01/18/20 16:44 Glucagon (Glucagon For Inj 1 Mg Vial) 1 mg IM UD PRN; Protocol PRN Reason: Hypoglycemia Protocol Stop: 01/18/20 16:44 Glucose (Glucose 40% Gel 15 Gm Tube) 15 - 30 gm PO UD PRN; Protocol PRN Reason: Hypoglycemia Protocol Stop: 01/18/20 16:44 Glucose (Glucose 10 Tabs/Tube) 4 - 8 tabs PO UD PRN; Protocol PRN Reason: Hypoglycemia Protocol Stop: 01/18/20 16:44 Heparin Sodium (Porcine) (Heparin Sod 5,000 Unit/0.5 Ml Vial) 5,000 units SQ Q8 [facility] Stop: 01/20/20 13:59 Last Admin: 12/21/19 13:32 Dose: 5,000 units Documented by: Hydralazine HCl (Hydralazine Hcl 25 Mg Tab) 75 mg PO TID [facility] Stop: 01/20/20 13:59 Last Admin: 12/21/19 13:33 Dose: 75 mg Documented by: Pantoprazole Sodium 40 mg/ (Syringe) 10 mls @ 5 mls/min IV Q12 [facility] Stop: 01/18/20 16:59 Last Admin: 12/21/19 08:09 Dose: 5 mls/min Documented by: Sodium Bicarbonate 75 meq/ (Dextrose) 1,075 mls @ 80 mls/hr IV .[id number] [facility] Stop: 01/20/20 13:29 Last Admin: 12/21/19 13:32 Dose: 80 mls/hr Documented by: Insulin Aspart (Insulin Aspart 100 Units/Ml 3 Ml Pen) 0 units SC ACHS [facility] Stop: 01/18/20 16:59 Last Admin: 12/21/19 16:52 Dose: 9 units Documented by: Insulin Glargine (Insulin Glargine Solostar 100 Units/Ml 3 Ml Pen) 25 units SC DAILY [facility]; Protocol Stop: 01/20/20 11:29 Last Admin: 12/21/19 11:51 Dose: 25 units Documented by: Isosorbide Mononitrate (Isosorbide [place] Extended Rel 60 Mg Tabcr) 60 mg PO QAM [facility] Stop: 01/19/20 08:59 Last Admin: 12/21/19 08:09 Dose: 60 mg Documented by: Loperamide HCl (Loperamide Hcl 2 Mg Cap) 2 mg PO UD PRN PRN Reason: Diarrhea Stop: 01/18/20 16:01 Miscellaneous (Carbohydrates For Hypoglycemia ) 15 - 30 gm PO UD PRN PRN Reason: Hypoglycemia Treatment Stop: 01/18/20 16:44 Miscellaneous Information (Pharmacy Glycemic Mgmt Consult) 1 ea N/A UD PRN PRN Reason: Consult Stop: 01/18/20 16:22 Nitroglycerin (Nitroglycerin Sl 0.4 Mg/Tab Tab) 0.4 mg SL PRN PRN PRN Reason: Chest Pain Stop: 01/18/20 09:56 Terazosin HCl (Terazosin Hcl 1 Mg Cap) 2 mg PO HS [facility] Stop: 01/18/20 20:59 Last Admin: 12/20/19 21:29 Dose: 2 mg Documented by: (1) Diarrhea Diarrhea type: unspecified type Qualified Code(s): R19.7 - Diarrhea, unspecified
[2019-12-21] MEDS: AMLODIPINE BESYLATE 5 MG TAB PO SCH (20:41)
[2019-12-21] MEDS: allopurinoL 100 MG TAB PO SCH (20:41)
[2019-12-21] MEDS: ASPIRIN 81 MG ECTAB PO SCH (20:41)
[2019-12-21] MEDS: TERAZOSIN HCL 1 MG CAP PO SCH (20:42)
[2019-12-21] MEDS: ATORVASTATIN 40 MG TAB PO SCH (20:42)
[2019-12-22] MEDS: SODIUM BICARBONATE 8.4% 75 MEQ in DEXTROSE 5% 1,000 ML IV SCH (03:06)
[2019-12-22 06:36] LABS: Hematocrit (blood only) 32.9 % (42-52); Hemoglobin 11.3 g/dL (14.0-18.0); Mean Corpuscular Hemoglobin 30.5 pg (25-34); Mean Corpuscular Hgb Conc 34.3 g/dL (32-36); Mean Corpuscular Volume 88.7 fL (80-100); RDW Standard Deviation 45.8 fL (36.4-46.3); Red Blood Count 3.71 M/uL (4.7-6.1); White Blood Count 6.71 K/uL (4.8-10.8)
[2019-12-22 06:39] LABS: Mean Platelet Volume 11.2 fL (7.4-10.4); Platelet Count 87 K/uL (130-400)
[2019-12-22 07:04] LABS: BUN Creatinine Ratio 33.8 (10-20); Calcium 8.3 mg/dl (8.5-10.1); Creatinine Clr Calc Pharmacy 47.8 ml/min; Est GFR (African American) 44.1; Est GFR (Non-African American) 38.1; Magnesium 2.4 mg/dl (1.8-2.4); Potassium 4.7 mmol/L (3.5-5.1)
[2019-12-22] MEDS: INSULIN ASPART 100 UNITS/ML 3 ML PEN SC SCH ×4 (07:51→21:03)
[2019-12-22] MEDS: NITROGLYCERIN SL 0.4 MG/TAB TAB SL PRN ×2 (08:06→08:20)
[2019-12-22] MEDS ORDERED: LORazepam 0.5 MG/1 ML VIAL IV STA (08:33)
[2019-12-22] MEDS ORDERED: INSULIN GLARGINE SOLOSTAR 100 UNITS/ML 3 ML PEN SC SCH (09:00)
[2019-12-22] MEDS: PANTOprazole 40 MG in SYRINGE 0 ML IV SCH ×2 (09:49→19:42)
[2019-12-22] MEDS: COLESTIPOL HCL 1 GM TAB PO SCH ×2 (09:49→22:27)
[2019-12-22] MEDS: ISOSORBIDE MONO EXTENDED REL 60 MG TABCR PO SCH (09:49)
--- NOTE | 2019-12-22 09:53 | Cardiology Progress Note ---
Date of Service December 22, 2019 Assessment & Plan (1) Kidney disease: (2) Acute hyperkalemia: (3) Diarrhea: (4) Bradycardia: The EP service is aware of the patient's bradycardia. On the telemetry early this morning it would appear that he has junctional rhythm. He is hemodynamically stable, but will need a permanent pacemaker. Admission and Anticipated Discharge Date Admission Date: December 19, 2019 Subjective The patient became anxious this morning about potential pacemaker operation today. He was given Ativan and a sublingual nitroglycerin. The patient states the Ativan seems to have helped the best. Review of Systems Review of Systems: All systems reviewed & are unremarkable except as noted in HPI & below Nothing additional to add. Physical Exam Physical Exam: General: no acute distress and stated age Head: normocephalic, no masses, lesions, tenderness or abnormalities Eyes: conjunctiva are pink and non-injected, sclera clear Neck: supple, no adenopathy, no bruits, normal jugular venous pulse, no hepatojugular reflux Chest: normal shape and normal respiratory effort Lungs: clear to auscultation and percussion Cardiac Exam: - regular rate & rhythm, no murmurs gallops or rubs - normal S1, normal S2 Pulses: 2(+) throughout Abdomen: abdomen soft, non-tender, no abnormal masses and no hepatosplenomegaly Musculoskeletal: no gait disturbance, no joint inflammation, no deforming arthritis Extremities: no edema and no cyanosis Neuro: grossly normal exam Results & Data ([facility]) Vital Signs (Past 12 Hours) Vital Signs Temp Pulse Pulse Resp BP Pulse Ox 12/22/19 08:00 36.7 C 41 L 20 169/56 H 93 12/22/19 07:47 42 L 12/22/19 03:27 36.7 C 35 L 16 141/59 H 92 12/22/19 00:36 36.7 C 38 L 18 152/56 H 92 12/21/19 23:00 35 L Laboratory Results Laboratory Results - last 24 hr 12/21/19 12/21/19 12/21/19 10:27 10:27 11:07 WBC 6.71 RBC 3.70 L Hgb 11.4 L Hct 33.2 L MCV 89.7 MCH 30.8 MCHC 34.3 RDW Std Deviation 46.4 H RDW Coeff of [place] 14.2 Plt Count 90 L MPV 11.0 H Sodium 141 Potassium 5.0 Chloride 109 H Carbon Dioxide 30 Anion Gap 2.0 L BUN 69 H Creatinine 1.86 H D Est Cr Clr Drug Dosing 44.1 Est GFR ( Amer) 41.0 Est GFR (Non-Af Amer) 35.4 BUN/Creatinine Ratio 37.3 H Glucose 213 H POC Glucose 226 H Calcium 8.1 L Phosphorus 2.6 D Magnesium 2.3 Troponin I 12/21/19 12/21/19 12/22/19 16:26 20:41 06:18 WBC 6.71 RBC 3.71 L Hgb 11.3 L Hct 32.9 L MCV 88.7 MCH 30.5 MCHC 34.3 RDW Std Deviation 45.8 RDW Coeff of [place] 14.0 Plt Count 87 L MPV 11.2 H Sodium Potassium Chloride Carbon Dioxide Anion Gap BUN Creatinine Est Cr Clr Drug Dosing Est GFR ( Amer) Est GFR (Non-Af Amer) BUN/Creatinine Ratio Glucose POC Glucose 165 H 154 H Calcium Phosphorus Magnesium Troponin I 12/22/19 12/22/19 12/22/19 06:18 06:18 06:44 WBC RBC Hgb Hct MCV MCH MCHC RDW Std Deviation RDW Coeff of [place] Plt Count MPV Sodium 142 Potassium 4.7 Chloride 108 H Carbon Dioxide 31 Anion Gap 3.0 BUN 59 H Creatinine 1.75 H Est Cr Clr Drug Dosing 47.8 Est GFR ( Amer) 44.1 Est GFR (Non-Af Amer) 38.1 BUN/Creatinine Ratio 33.8 H Glucose 99 POC Glucose 107 H Calcium 8.3 L Phosphorus Magnesium 2.4 Troponin I 0.027 Medications Administered Current Inpatient Medications Allopurinol (Allopurinol 100 Mg Tab) 50 mg PO Q2D@2100 [facility] Stop: 01/18/20 20:59 Last Admin: 12/21/19 20:41 Dose: 50 mg Documented by: Amlodipine Besylate (Amlodipine Besylate 5 Mg Tab) 10 mg PO HS [facility] Stop: 01/20/20 20:59 Last Admin: 12/21/19 20:41 Dose: 10 mg Documented by: Aspirin (Aspirin 81 Mg Ectab) 81 mg PO HS [facility] Stop: 01/20/20 20:59 Last Admin: 12/21/19 20:41 Dose: 81 mg Documented by: Atorvastatin Calcium (Atorvastatin 40 Mg Tab) 40 mg PO HS [facility] Stop: 01/18/20 20:59 Last Admin: 12/21/19 20:42 Dose: 40 mg Documented by: Atropine Sulfate (Atropine Sulfate 0.1 Mg/Ml 10ml Syr) 0.5 mg IV Q3M PRN PRN Reason: symptomatic bradycardia Stop: 01/19/20 02:12 Colestipol HCl (Colestipol Hcl 1 Gm Tab) 1 gm PO BID@1000,2200 [facility] Stop: 01/18/20 21:59 Last Admin: 12/21/19 22:29 Dose: 1 gm Documented by: Dextrose (Dextrose 50% 50 Ml Syringe) 25 - 50 ml IV UD PRN; Protocol PRN Reason: Hypoglycemia Protocol Stop: 01/18/20 16:44 Glucagon (Glucagon For Inj 1 Mg Vial) 1 mg IM UD PRN; Protocol PRN Reason: Hypoglycemia Protocol Stop: 01/18/20 16:44 Glucose (Glucose 40% Gel 15 Gm Tube) 15 - 30 gm PO UD PRN; Protocol PRN Reason: Hypoglycemia Protocol Stop: 01/18/20 16:44 Glucose (Glucose 10 Tabs/Tube) 4 - 8 tabs PO UD PRN; Protocol PRN Reason: Hypoglycemia Protocol Stop: 01/18/20 16:44 Heparin Sodium (Porcine) (Heparin Sod 5,000 Unit/0.5 Ml Vial) 5,000 units SQ Q8 [facility] Stop: 01/20/20 13:59 Last Admin: 12/21/19 13:32 Dose: 5,000 units Documented by: Hydralazine HCl (Hydralazine Hcl 25 Mg Tab) 75 mg PO TID [facility] Stop: 01/20/20 13:59 Last Admin: 12/21/19 20:45 Dose: 75 mg Documented by: Pantoprazole Sodium 40 mg/ (Syringe) 10 mls @ 5 mls/min IV Q12 [facility] Stop: 01/18/20 16:59 Last Admin: 12/21/19 20:42 Dose: 5 mls/min Documented by: Sodium Bicarbonate 75 meq/ (Dextrose) 1,075 mls @ 80 mls/hr IV .[id number] [facility] Stop: 01/20/20 13:29 Last Admin: 12/22/19 03:06 Dose: 80 mls/hr Documented by: Insulin Aspart (Insulin Aspart 100 Units/Ml 3 Ml Pen) 0 units SC ACHS [facility] Stop: 01/18/20 16:59 Last Admin: 12/22/19 07:51 Dose: Not Given Documented by: Insulin Glargine (Insulin Glargine Solostar 100 Units/Ml 3 Ml Pen) 15 units SC DAILY [facility]; Protocol Stop: 01/20/20 11:29 Isosorbide Mononitrate (Isosorbide [place] Extended Rel 60 Mg Tabcr) 60 mg PO QAM [facility] Stop: 01/19/20 08:59 Last Admin: 12/21/19 08:09 Dose: 60 mg Documented by: Loperamide HCl (Loperamide Hcl 2 Mg Cap) 2 mg PO UD PRN PRN Reason: Diarrhea Stop: 01/18/20 16:01 Miscellaneous (Carbohydrates For Hypoglycemia ) 15 - 30 gm PO UD PRN PRN Reason: Hypoglycemia Treatment Stop: 01/18/20 16:44 Miscellaneous Information (Pharmacy Glycemic Mgmt Consult) 1 ea N/A UD PRN PRN Reason: Consult Stop: 01/18/20 16:22 Nitroglycerin (Nitroglycerin Sl 0.4 Mg/Tab Tab) 0.4 mg SL PRN PRN PRN Reason: Chest Pain Stop: 01/18/20 09:56 Last Admin: 12/22/19 08:20 Dose: 0.4 mg Documented by: Terazosin HCl (Terazosin Hcl 1 Mg Cap) 2 mg PO HS [facility] Stop: 01/18/20 20:59 Last Admin: 12/21/19 20:42 Dose: 2 mg Documented by: (1) Diarrhea Diarrhea type: unspecified type Qualified Code(s): R19.7 - Diarrhea, unspecified
[2019-12-22] MEDS ORDERED: MIDAZOLAM HCL 5 MG/ML 1 ML VIAL ONE (10:20)
[2019-12-22] MEDS ORDERED: LIDOCAINE HCL 1% 20 ML VIAL ONE (10:20)
[2019-12-22] MEDS ORDERED: fentaNYL citrate 100 MCG/2 ML VIAL ONE (10:20)
[2019-12-22] MEDS ORDERED: BUPIVACAINE 0.25% 30 ML VIAL ONE (10:20)
[2019-12-22] MEDS ORDERED: BACITRACIN INJ 50,000 UNIT VIAL ONE (10:30)
--- NOTE | 2019-12-22 10:33 | Pharmacy Report ---
Pharmacy Glycemic Short Note 2 - Date of Service December 22, 2019 - Glycemic Short BSG Results (Last 24 hours): 12/21/19 12/21/19 12/21/19 10:27 11:07 16:26 Glucose 213 H POC Glucose 226 H 165 H 12/21/19 12/22/19 12/22/19 20:41 06:18 06:44 Glucose 99 POC Glucose 154 H 107 H OUTPATIENT ANTIDIABETIC REGIMEN: * Lantus 25 units SQ Daily * Novolog 6 units with dinner * Glipizide XL 10mg daily * A1c = 6.7 % 12/20/19 ASSESSMENT: * LS received 55 units of insulin yesterday * 25 units basal * 30 units bolus * BSGs of 166, 226, 165, and 154 mg/dL * Given BSG improvement throughout the day, especially after Novolog tightening at lunchtime, will continue currently ordered Novolog * Fasting BSG of 107 mg/dL * Patient made NPO today for pacemaker insertion this morning * Diet ordered for lunch - will give basal insulin now PLAN FOR INPATIENT GLYCEMIC CONTROL: * Hold outpatient oral diabetes medications * Basal insulin * 20 units with lunch * Lantus scale (0-5 units) HS - see EHR for details * Bolus insulin - continue * NovoLog per scale ACHS or Q6hrs while NPO * Goal Range: Low 120 mg/dL - High 150 mg/dL * Correction Factor: 18 mg/dL/unit * Nutritional / Prandial insulin per carb ratio of 1 unit per 6 grams CHO consumed thank you
[2019-12-22] MEDS ORDERED: WATER, STERILE FOR INJ 10 ML VIAL ONE (10:45)
[2019-12-22] MEDS ORDERED: CEFAZOLIN 250 MG/ML 1 GM VIAL ONE (10:45)
--- NOTE | 2019-12-22 10:55 | Pre Anesthesia Assessment ---
Date of Service December 22, 2019 Pre Sedation Assessment Vital Signs Temp Pulse Pulse Resp BP Pulse Ox 12/22/19 08:00 36.7 C 41 L 20 169/56 H 93 12/22/19 07:47 42 L 12/22/19 03:27 36.7 C 35 L 16 141/59 H 92 12/22/19 00:36 36.7 C 38 L 18 152/56 H 92 12/21/19 23:00 35 L 12/21/19 19:03 36.7 C 43 L 12 156/66 H 96 12/21/19 15:10 36.5 C 46 L 18 149/64 H 98 12/21/19 15:00 49 L 12/21/19 11:13 36.7 C 41 L 18 160/73 H 96 Cardiovascular + regular rate and + bradycardic Respiratory + respiratory effort normal Pre-Sedation Airway Assessment Smoking Status: Former smoker Hx Sleep Apnea: No Hx Difficult Intubation: No Short, Thick Neck: No Thyromental Distance: > or= 3.5 Finger Breadths Oral Cavity: + WNL Mallampati Class: II ASA: ASA3 NPO Status Date of Last Intake of Fluids: 12/22/19 Time of Last Intake of Fluids: 06:00 Date of Last Intake of Solid Food: 12/21/19 Time of Last Intake of Solid Foods: 18:00 Procedure Planning Contraindications for Sedation: none Current Medications Reviewed: Yes Notes The planned sedation has been discussed with the patient. Informed Consent was obtained. I have identified the patient, determined the appropriateness of sedation and have assessed the patient immediately prior to the procedure. All medicine(s) and interventions are by my order.
--- NOTE | 2019-12-22 11:58 | Post Anesthesia Assessment ---
Date of Service December 22, 2019 Post Sedation Assessment Vital Signs Temp Pulse Pulse Resp BP Pulse Ox 12/22/19 08:00 36.7 C 41 L 20 169/56 H 93 12/22/19 07:47 42 L 12/22/19 03:27 36.7 C 35 L 16 141/59 H 92 12/22/19 00:36 36.7 C 38 L 18 152/56 H 92 12/21/19 23:00 35 L 12/21/19 19:03 36.7 C 43 L 12 156/66 H 96 12/21/19 15:10 36.5 C 46 L 18 149/64 H 98 12/21/19 15:00 49 L Recovery Score Activity: Moves 4 extremities Respiration: Deep Breath/Cough Circulation: +/-20% PreAnes Value Consciousness: Fully Awake Oxygen Saturation: > 92% On Room Air Discharge Sedation Level of Care: Fast Track Phase II Post Sedation Plan On clinical assessment, the patient appears to have tolerated the sedation without complications. Patient is recovering as anticipated. Patient will continue to be monitored by nursing and may be discharged when sedation discharge criteria are met per below protocol. Upon Completions of procedure up to 15 minutes continue every 5 minute vital signs and the P.A.R. score; then discharge to a Phase I or Fast Track to Phase II per the following guidelines: * Discharge Patient to appropriate Phase II area if PAR is 8 or greater or return to pre- procedure baseline. The post - procedure orders will be as directed. * If PAR score is less than 8 or not return to pre-procedure baseline then patient will follow Phase I monitoring till PAR is reached for Phase II. The Phase I may be done in procedure room or may call to secure a Phase I area. * If naloxone or flumazenil are used for reversal, hold in Phase I for continued monitoring from when last reversal dose was given for a minimum of 60 minutes or longer pending the nurse and/or physician discretion of patient condition before discharge to Phase II. Please call the Sedation Physician to re-evaluate and complete post-note for discharge to Phase II area. Do NOT discharge from procedure sedation or Phase 1 until post- sedation evaluation note is complete by procedure /sedation MD Sedation Discharge Instructions to be given to the patient at discharge to home.
[2019-12-22] MEDS ORDERED: ACETAMINOPHEN 325 MG TAB PO PRN (12:04)
[2019-12-22] MEDS ORDERED: OXYCODONE HCL IR 5 MG TAB (IMMEDIATE RELEASE) PO PRN (12:04)
--- NOTE | 2019-12-22 12:04 | Electrophysiology Report ---
Date of Service December 22, 2019 Electrophysiology Procedure Electrophysiology Procedure Report Procedure performed: Implantation of dual-chamber permanent pacemaker Staff tree puller: Raheel Horne MD Indication: The patient is a 73-year-old gentleman with a history of sinus bra dycardia who was admitted to the hospital noted to have both symptomatic sinus bradycardia and occasional junctional heartbeats. This will be good candidate for permanent pacing due to symptomatic nonreversible S-A node dysfunction. Dual-chamber device was selected as the patient is currently in sinus rhythm and wished to maintain AV synchrony. Procedure in detail: The patient was informed of the risks benefits and alternatives to the intended procedure and he wished to proceed. He was taken to the electrophysiology suite in a fasting state. A preoperative antibiotic had been administered. The patient was monitored electrocardiographically throughout today's procedure and conscious sedation was administered per protocol. The left upper pectoral area is prepped and draped in usual sterile fashion. This area was anesthetized using subcutaneous administration of a xylocaine solution. An incision was made at this site and carried down to the prepectoralis fascia using sharp dissection. Electrocautery was also employed for dissection as well as for hemostasis. A device pocket was fashioned tissues above the pectoralis muscle. Subsequent to this maneuver the left axillary vein was accessed using modified Seldinger technique. Sheaths were placed over guidewires at this site and used to facilitate passage of the pacing leads to their respective chambers under fluoroscopic guidance. This included right atrial and right ventricular leads. Adequate sensing and threshold parameters were obtained prior to Active fixation of the leads to the endocardial surface. The proximal portion leads were then sutured the prepectoral fascia using nonabsorbable suture. The device pocket was irrigated with antibiotic solution. The leads were then attached to the device. The device and leads were then placed in the pocket and pocket was closed in 3 layers of absorbable suture. Steri-Strips and sterile dressing were applied. The device was tested noninvasively prior to conclusion the procedure. The patient tolerated procedure well there no immediate complications. Equipment used: New pulse generator: [employer]. Model number: [id number] serial number [id number] Right atrial lead: [employer]. Model number: [id number] serial number [id number] Right ventricular lead: [employer]ant [employer]. Model number: [id number] serial number [id number] Measured data: Right atrial lead: P waves measure 1 mV. Pacing threshold 1 V at 0.4 ms with a pacing appearance of 437 ohms Right ventricular lead: R waves measured 7.9 mV. Pacing threshold 1.5 V at 0.4 ms with a pacing appearance of 589 ohms Impression: Successful implantation of dual-chamber permanent pacemaker [facility] Electrophysiology codes Pacing Procedure 1: Pacin Insert/Replace Pacer A & V PG Moderate Sedation Codes Moderate Sedation Codes Procedure 1: Sedation/Anesthesia: 97718 Mod Sedation by the same physician;Init15 Min Child Age 5 & Up Procedure 2: Sedation/Anesthesia: 24917 Mod Sedation by the same physician; Ea [id number] Minutes
--- NOTE | 2019-12-22 12:58 | Hospitalist Progress Note ---
Date of Service December 22, 2019 Assessment & Plan (1) Weakness: Improved as he is ambulating on his own. PT and OT formal evaluations ordered. Will reassess after PM placement. (2) Acute hyperkalemia: Medication-induced, Reversed. Cont Nephrology management and renal diet. (3) Acute on chronic renal failure: No need for acute dialysis per Nephro. Creatinine continues to improve on labwork today. Cont holding ACEI and diuretics. Nephro following. (4) Diarrhea: resolved (5) Lesion of bladder: urology consulted and plans for outpatient cystoscopy in office within the next few weeks. (6) Bradycardia: PM today. (7) Diabetes: Basal/bolus insulin while hospitalized. Appreciate glycemic pharmacy management. (8) DVT prophylaxis: SCDs-heparin held in preparation for PM placement Full Code Dispo-plan for home when medically stable. PT/OT ordered. Amelie Israel DO [facility]ist Admission and Anticipated Discharge Date Admission Date: December 19, 2019 Subjective Reported by nurse this morning to have right anterior chest pain without radiation. No ST changes to suggest acute ischemia on EKGs. Pain traveled to the left anterior chest shortly after this and CP improved to 4/10 with two doses of nitro. His BP was still in the 170s systolic and patient denied any SOB, diaphoresis, nausea, lightheadedness or palpitations. He then began to cry and say that he was scared about the upcoming procedure and he was upset on the phone to family. Ativan was given to help and shortly after this he was taken for a PM. Review of Systems Review of Systems: All systems reviewed & are unremarkable except as noted in Subjective Physical Exam Physical Exam: CONSTITUTIONAL: obese, vitals as above, generally well- appearing EYES: normal conjunctivae, no scleral icterus ENT: external ear and nose normal, oropharynx clear RESPIRATORY: clear to auscultation bilaterally, no crackles, rales or wheezes, normal respiratory effort CARDIOVASCULAR: regular rate and rhythm, S1 and 2 heard without murmurs, gallops or rubs, no JVD, no peripheral edema GASTROINTESTINAL: soft, nontender, nondistended, no guarding. Abdomen protuberant. MUSCULOSKELETAL: strength 5/5 throughout, head is normocephalic and atraumatic SKIN: warm and dry NEUROLOGIC: CN 2-12 grossly intact, no sensory deficit, normal cognition, normal speech, no tremor, no gross neurologic deficits. PSYCHIATRIC: alert cooperative and oriented to person, place and time. Results & Data Results & Data ([facility]) Vital Signs (Past 12 Hours) Vital Signs Temp Pulse Pulse Resp BP Pulse Ox 12/22/19 12:35 60 16 163/64 H 93 12/22/19 12:19 60 17 149/70 H 93 12/22/19 12:05 96 H 17 144/72 H 92 12/22/19 08:00 36.7 C 41 L 20 169/56 H 93 12/22/19 07:47 42 L 12/22/19 03:27 36.7 C 35 L 16 141/59 H 92 Laboratory Results Short CBC 12/22/19 Range/Units 06:18 WBC 6.71 (4.8-10.8) K/uL Hgb 11.3 L (14.0-18.0) g/dL Hct 32.9 L (42-52) % Plt Count 87 L (130-400) K/uL BMP 12/22/19 06:18 Sodium 142 Potassium 4.7 Chloride 108 H Carbon Dioxide 31 BUN 59 H Creatinine 1.75 H Glucose 99 Calcium 8.3 L Cardiac Enzymes 12/22/19 Range/Units 06:18 Troponin I 0.027 (0-0.045) ng/ml Medications Administered Allopurinol (Allopurinol 100 Mg Tab) 50 mg PO Q2D@2100 [facility] Stop: 01/18/20 20:59 Last Admin: 12/21/19 20:41 Dose: 50 mg Documented by: [id number] Admin: 12/19/19 20:16 Dose: 50 mg Documented by: [id number] Amlodipine Besylate (Amlodipine Besylate 5 Mg Tab) 10 mg PO [facility] Stop: 01/20/20 20:59 Last Admin: 12/21/19 20:41 Dose: 10 mg Documented by: [id number] Aspirin (Aspirin 81 Mg Ectab) 81 mg PO [facility] Stop: 01/20/20 20:59 Last Admin: 12/21/19 20:41 Dose: 81 mg Documented by: [id number] Atorvastatin Calcium (Atorvastatin 40 Mg Tab) 40 mg PO [facility] Stop: 01/18/20 20:59 Last Admin: 12/21/19 20:42 Dose: 40 mg Documented by: [id number] Admin: 12/20/19 21:30 Dose: 40 mg Documented by: [id number] Admin: 12/19/19 20:15 Dose: 40 mg Documented by: [id number] Colestipol HCl (Colestipol Hcl 1 Gm Tab) 1 gm PO BID@1000,2200 [facility] Stop: 01/18/20 21:59 Last Admin: 12/22/19 09:49 Dose: 1 gm Documented by: [id number] Admin: 12/21/19 22:29 Dose: 1 gm Documented by: [id number] Admin: 12/21/19 10:35 Dose: 1 gm Documented by: [id number] Admin: 12/20/19 21:43 Dose: 1 gm Documented by: [id number] Admin: 12/20/19 09:06 Dose: 1 gm Documented by: [id number] Admin: 12/19/19 20:16 Dose: 1 gm Documented by: [id number] Heparin Sodium (Porcine) (Heparin Sod 5,000 Unit/0.5 Ml Vial) 5,000 units SQ Q8 [facility] Stop: 01/20/20 13:59 Last Admin: 12/21/19 13:32 Dose: 5,000 units Documented by: [id number] Cosigned by: [id number] Hydralazine HCl (Hydralazine Hcl 25 Mg Tab) 75 mg PO TID [facility] Stop: 01/20/20 13:59 Last Admin: 12/22/19 09:49 Dose: 75 mg Documented by: [id number] Admin: 12/21/19 20:45 Dose: 75 mg Documented by: [id number] Admin: 12/21/19 13:33 Dose: 75 mg Documented by: [id number] Pantoprazole Sodium 40 mg/ (Syringe) 10 mls @ 5 mls/min IV Q12 [facility] Stop: 01/18/20 16:59 Last Admin: 12/22/19 09:49 Dose: 5 mls/min Documented by: [id number] Admin: 12/21/19 20:42 Dose: 5 mls/min Documented by: [id number] Admin: 12/21/19 08:09 Dose: 5 mls/min Documented by: [id number] Admin: 12/20/19 21:43 Dose: 5 mls/min Documented by: [id number] Admin: 12/20/19 09:06 Dose: 5 mls/min Documented by: [id number] Admin: 12/19/19 20:10 Dose: 5 mls/min Documented by: [id number] Admin: 12/19/19 17:43 Dose: 5 mls/min Documented by: [id number] Insulin Aspart (Insulin Aspart 100 Units/Ml 3 Ml Pen) 0 units SC ACHS [facility] Stop: 01/18/20 16:59 Last Admin: 12/22/19 12:40 Dose: 7 units Documented by: [id number] Cosigned by: [id number] Admin: 12/22/19 07:51 Dose: Not Given Documented by: [id number] Cosigned by: [id number] Admin: 12/21/19 20:42 Dose: 1 units Documented by: [id number] Cosigned by: [id number] Admin: 12/21/19 16:52 Dose: 9 units Documented by: [id number] Cosigned by: [id number] Admin: 12/21/19 11:50 Dose: 15 units Documented by: [id number] Cosigned by: [id number] Admin: 12/21/19 08:10 Dose: 5 units Documented by: [id number] Cosigned by: [id number] Admin: 12/20/19 21:35 Dose: 7 units Documented by: [id number] Cosigned by: [id number] Admin: 12/20/19 17:21 Dose: 9 units Documented by: [id number] Cosigned by: [id number] Admin: 12/20/19 12:21 Dose: 4 units Documented by: [id number] Cosigned by: [id number] Admin: 12/20/19 09:02 Dose: Not Given Documented by: [id number] Cosigned by: [id number] Admin: 12/19/19 21:30 Dose: Not Given Documented by: [id number] Cosigned by: [id number] Admin: 12/19/19 17:58 Dose: 4 units Documented by: [id number] Cosigned by: [id number] Isosorbide Mononitrate (Isosorbide [place] Extended Rel 60 Mg Tabcr) 60 mg PO QAM [facility] Stop: 01/19/20 08:59 Last Admin: 12/22/19 09:49 Dose: 60 mg Documented by: [id number] Admin: 12/21/19 08:09 Dose: 60 mg Documented by: [id number] Admin: 12/20/19 11:17 Dose: 60 mg Documented by: [id number] Nitroglycerin (Nitroglycerin Sl 0.4 Mg/Tab Tab) 0.4 mg SL PRN PRN PRN Reason: Chest Pain Stop: 01/18/20 09:56 Last Admin: 12/22/19 08:20 Dose: 0.4 mg Documented by: [id number] Admin: 12/22/19 08:06 Dose: 0.4 mg Documented by: [id number] Terazosin HCl (Terazosin Hcl 1 Mg Cap) 2 mg PO HS [facility] Stop: 01/18/20 20:59 Last Admin: 12/21/19 20:42 Dose: 2 mg Documented by: [id number] Admin: 12/20/19 21:29 Dose: 2 mg Documented by: [id number] Admin: 12/19/19 20:15 Dose: 2 mg Documented by: [id number] (1) Diarrhea Diarrhea type: unspecified type Qualified Code(s): R19.7 - Diarrhea, unspecified
[2019-12-22] MEDS ORDERED: INSULIN GLARGINE SOLOSTAR 100 UNITS/ML 3 ML PEN SC ONE ×2 (13:00→21:00)
--- NOTE | 2019-12-22 16:48 | Nephrology Progress Note ---
Date of Service December 22, 2019 Assessment & Plan (1) Acute on chronic renal failure: Baseline creatinine 1.8-2.1. Presenting creatinine 2.8, improved to 2.2 12/19, then 1.8 this morning. Diarrhea has stopped, weakness improving. Presenting urine sediment bland. Prerenal acute kidney injury in the setting of diarrhea. Diarrhea has stopped and patient is clinically improving. Chemi stries normalizing though K still high normal. Volume status acceptable. No indication for acute dialysis. No evidence bladder lesion has role in acute renal failure Continue to hold CHINO inhibitor, spironolactone, loop diuretic Strict ins and outs Daily basic metabolic panel Continue dialysis/renal diet for now (2) Acute hyperkalemia: improved. Medication related and medically managed. Stop IV bicarbonate drip (3) Bradycardia: Ongoing and with >3s monitor pauses>> History of intermittent complete heart block while sleeping; patient getting permanent pacemaker placement today (4) HTN (hypertension): Some permissive hypertension in due to IV fluids. No need to aggressively lower blood pressure now. Admission and Anticipated Discharge Date Admission Date: December 19, 2019 Subjective Patient feels better today his chest pain has resolved. No shortness of breath. He is planned for permanent pacemaker placement today Review of Systems Review of Systems: All systems reviewed & are unremarkable except as noted in HPI & below Physical Exam Physical Exam: General exam: Appears comfortable, no acute distress HEENT: Pupils are equal and reactive to light Neck: No JVD, neck is supple trachea is midline Respiratory system: Clear breath sounds bilaterally. Gastrointestinal: Abdomen is soft, non distended, non tender, bowel sounds are present CVS: Regular rate and rhythm. No murmurs, rubs or gallops Musculoskeletal: No joint or muscle tenderness Extremities: Non tender, no edema, peripheral pulses are present Neuro: Oriented, no tremors, no focal neurological deficits Skin: No rashes Results & Data ([facility]) Vital Signs (Past 12 Hours) Vital Signs Temp Pulse Pulse Resp BP Pulse Ox 12/22/19 15:00 60 12/22/19 14:00 59 L 157/69 H 93 12/22/19 13:30 84 113/66 94 12/22/19 13:20 59 L 153/56 H 95 12/22/19 12:50 60 16 154/62 H 93 12/22/19 12:35 60 16 163/64 H 93 12/22/19 12:30 69 12/22/19 12:19 60 17 149/70 H 93 12/22/19 12:05 96 H 17 144/72 H 92 12/22/19 08:00 36.7 C 41 L 20 169/56 H 93 12/22/19 07:47 42 L Laboratory Results 12/22/19 06:18 12/22/19 06:18 WBC 6.71 RBC 3.71 L MCV 88.7 MCH 30.5 MCHC 34.3 RDW Std Deviation 45.8 RDW Coeff of [place] 14.0 Plt Count 87 L MPV 11.2 H
[2019-12-22] MEDS: CEFAZOLIN 2000MG 2,000 MG/15 ML SYR IV SCH (17:29)
[2019-12-22] MEDS: AMLODIPINE BESYLATE 5 MG TAB PO SCH (19:43)
[2019-12-22] MEDS: ATORVASTATIN 40 MG TAB PO SCH (19:43)
[2019-12-22] MEDS: ASPIRIN 81 MG ECTAB PO SCH (19:44)
[2019-12-22] MEDS: TERAZOSIN HCL 1 MG CAP PO SCH (19:44)
[2019-12-23] MEDS: CEFAZOLIN 2000MG 2,000 MG/15 ML SYR IV SCH ×2 (03:30→10:39)
[2019-12-23 06:16] LABS: Hematocrit (blood only) 34.6 % (42-52); Hemoglobin 11.9 g/dL (14.0-18.0); Mean Corpuscular Hemoglobin 30.4 pg (25-34); Mean Corpuscular Hgb Conc 34.4 g/dL (32-36); Mean Corpuscular Volume 88.3 fL (80-100); Mean Platelet Volume 10.9 fL (7.4-10.4); Platelet Count 100 K/uL (130-400); RDW Coefficient of Variation 14.1 % (11.5-14.5); RDW Standard Deviation 45.6 fL (36.4-46.3); Red Blood Count 3.92 M/uL (4.7-6.1); White Blood Count 6.82 K/uL (4.8-10.8)
[2019-12-23 06:48] LABS: BUN Creatinine Ratio 24.5 (10-20); Calcium 8.7 mg/dl (8.5-10.1); Creatinine Clr Calc Pharmacy 47.4 ml/min; Est GFR (African American) 44.4; Est GFR (Non-African American) 38.3
--- NOTE | 2019-12-23 07:22 | XRay Report ---
XR chest 2V PA/lateral CLINICAL HISTORY: Pacemaker insertion. COMPARISON STUDY: Chest radiograph December 19, 2019. FINDINGS: Interval placement of a dual lead left subclavian pacemaker is noted. Lead tips project ove r the right atrial appendage and right ventricle. There is no pneumothorax. There is no evidence for pulmonary edema. Mild cardiomegaly is unchanged. Calcified left lower lung nodule is noted. There is probable calcified left hilar lymph nodes. There is no consolidation to suggest pneumonia. IMPRESSION: No pneumothorax following placement of a dual-lead left subclavian pacemaker. ACT 112: Negative or not required by law. Electronically signed by: Axel Lewis M.D. 12/23/2019 7:21 AM
[2019-12-23] MEDS: PANTOprazole 40 MG in SYRINGE 0 ML IV SCH (08:29)
[2019-12-23] MEDS: ISOSORBIDE MONO EXTENDED REL 60 MG TABCR PO SCH (08:31)
[2019-12-23] MEDS: INSULIN ASPART 100 UNITS/ML 3 ML PEN SC SCH ×2 (08:31→12:07)
[2019-12-23] MEDS: COLESTIPOL HCL 1 GM TAB PO SCH (08:32)
--- NOTE | 2019-12-23 08:37 | Pharmacy Report ---
Pharmacy Glycemic Short Note 2 - Date of Service December 23, 2019 - Glycemic Short BSG Results (Last 24 hours): 12/22/19 12/22/19 12/22/19 12:39 16:25 20:20 Glucose POC Glucose 118 H 137 H 128 H 12/23/19 12/23/19 05:52 07:02 Glucose 85 POC Glucose 102 H OUTPATIENT ANTIDIABETIC REGIMEN: * Lantus 25 units SQ Daily * Novolog 6 units with dinner * Glipizide XL 10mg daily * A1c = 6.7 % 12/20/19 ASSESSMENT: * LS received 32 units of insulin yesterday * 20 units basal * 12 units bolus * BSGs very well-controlled yesterday (107, 118, 137, 128 mg/dL) * -will continue current Novolog parameters * Of note patient was NPO in AM for pacemaker insertion * Fasting BSG of 102 mg/dL this morning - will continue current basal dose PLAN FOR INPATIENT GLYCEMIC CONTROL: * Hold outpatient oral diabetes medications * Basal insulin - continue * Lantus 20 units SC qAM * Bolus insulin - continue * NovoLog per scale ACHS or Q6hrs while NPO * Goal Range: Low 120 mg/dL - High 150 mg/dL * Correction Factor: 18 mg/dL/unit * Nutritional / Prandial insulin per carb ratio of 1 unit per 6 grams CHO consumed PLAN FOR DISCHARGE: * Patient's HbA1c of 6.7% suggests very good glycemic control as an outpatient * If not experiencing hypoglycemia as an outpatient, it is reasonable to continue home regimen. Otherwise, ~20% reduction of daily Lantus may be appropriate (i.e. Lantus 20 units SC daily). thank you
[2019-12-23] MEDS ORDERED: INSULIN GLARGINE SOLOSTAR 100 UNITS/ML 3 ML PEN SC SCH (09:00)
--- NOTE | 2019-12-23 09:49 | Progress Note ---
Date of Service December 23, 2019 Assessment & Plan (1) Bradycardia: successful implantation of dual-chamber permanent pacemaker. No evident complication. Patient would be safe for discharge. He should refrain from lifting left arm above the shoulder behind the neck for 6 weeks. He should keep the wound dry the Steri-Strips intact until follow-up in the outpatient setting next week. Admission and Anticipated Discharge Date Admission Date: December 19, 2019 Subjective this morning patient claims he feeling well. He does have some mild discomfort at the implant site but much improved. Physical Exam Physical Exam: Wound appears to be healing well. No erythema. No hematoma. No drainage. Results & Data ([facility]) Vital Signs (Past 12 Hours) Vital Signs Temp Pulse Pulse Resp BP BP Pulse Ox 12/23/19 08:00 36.6 C 60 20 172/68 H 96 12/23/19 03:26 36.8 C 62 22 179/72 H 93 12/22/19 23:17 36.5 C 63 19 149/67 H 97 12/22/19 23:00 60 Diagnostic Findings Chest x-ray reveals good lead position without evidence of pneumothorax device interrogation reveals good sensing and threshold on both leads.
--- NOTE | 2019-12-23 11:04 | Cardiology Progress Note ---
Date of Service December 23, 2019 Assessment & Plan (1) Kidney disease: (2) Acute hyperkalemia: (3) Diarrhea: (4) Bradycardia: The patient is clinically stable and his pacemaker has been checked and it is functioning appropriately. At this point from a cardiac standpoint he can be discharged home. I will arrange for follow-up in [place] at their pacemaker clinic and for an appointment with a customer consultant there. Admission and Anticipated Discharge Date Admission Date: December 19, 2019 Subjective The patient is comfortably sitting in a chair. His pacemaker was interrogated today and is functioning appropriately. Review of Systems Review of Systems: All systems reviewed & are unremarkable except as noted in HPI & below Nothing additional to add Physical Exam Physical Exam: General: no acute distress and stated age Head: normocephalic, no masses, lesions, tenderness or abnormalities Eyes: conjunctiva are pink and non-injected, sclera clear Neck: supple, no adenopathy, no bruits, normal jugular venous pulse, no hepatojugular reflux Chest: normal shape and normal respiratory effort Lungs: clear to auscultation and percussion Cardiac Exam: - regular rate & rhythm, no murmurs gallops or rubs - normal S1, normal S2 Pulses: 2(+) throughout Abdomen: abdomen soft, non-tender, no abnormal masses and no hepatosplenomegaly Musculoskeletal: no gait disturbance, no joint inflammation, no deforming arthritis Extremities: no edema and no cyanosis Neuro: grossly normal exam Results & Data ([facility]) Vital Signs (Past 12 Hours) Vital Signs Temp Pulse Resp BP BP Pulse Ox 12/23/19 08:00 36.6 C 60 20 172/68 H 96 12/23/19 03:26 36.8 C 62 22 179/72 H 93 12/22/19 23:17 36.5 C 63 19 149/67 H 97 Laboratory Results Laboratory Results - last 24 hr 12/22/19 12/22/19 12/22/19 12:39 16:25 20:20 WBC RBC Hgb Hct MCV MCH MCHC RDW Std Deviation RDW Coeff of [place] Plt Count MPV Sodium Potassium Chloride Carbon Dioxide Anion Gap BUN Creatinine Est Cr Clr Drug Dosing Est GFR ( Amer) Est GFR (Non-Af Amer) BUN/Creatinine Ratio Glucose POC Glucose 118 H 137 H 128 H Calcium 12/23/19 12/23/19 12/23/19 05:52 05:52 07:02 WBC 6.82 RBC 3.92 L Hgb 11.9 L Hct 34.6 L MCV 88.3 MCH 30.4 MCHC 34.4 RDW Std Deviation 45.6 RDW Coeff of [place] 14.1 Plt Count 100 L MPV 10.9 H Sodium 143 Potassium 5.0 Chloride 110 H Carbon Dioxide 27 Anion Gap 6.0 BUN 43 H Creatinine 1.74 H Est Cr Clr Drug Dosing 47.4 Est GFR ( Amer) 44.4 Est GFR (Non-Af Amer) 38.3 BUN/Creatinine Ratio 24.5 H Glucose 85 POC Glucose 102 H Calcium 8.7 Medications Administered Current Inpatient Medications Acetaminophen (Acetaminophen 325 Mg Tab) 650 mg PO Q4H PRN PRN Reason: Mild pain (rating 1,2,3) Stop: 01/21/20 12:03 Last Admin: 12/22/19 19:42 Dose: 650 mg Documented by: Allopurinol (Allopurinol 100 Mg Tab) 50 mg PO Q2D@2100 [facility] Stop: 01/18/20 20:59 Last Admin: 12/21/19 20:41 Dose: 50 mg Documented by: Amlodipine Besylate (Amlodipine Besylate 5 Mg Tab) 10 mg PO [facility] Stop: 01/20/20 20:59 Last Admin: 12/22/19 19:43 Dose: 10 mg Documented by: Aspirin (Aspirin 81 Mg Ectab) 81 mg PO [facility] Stop: 01/20/20 20:59 Last Admin: 12/22/19 19:44 Dose: 81 mg Documented by: Atorvastatin Calcium (Atorvastatin 40 Mg Tab) 40 mg PO [facility] Stop: 01/18/20 20:59 Last Admin: 12/22/19 19:43 Dose: 40 mg Documented by: Atropine Sulfate (Atropine Sulfate 0.1 Mg/Ml 10ml Syr) 0.5 mg IV Q3M PRN PRN Reason: symptomatic bradycardia Stop: 01/19/20 02:12 Colestipol HCl (Colestipol Hcl 1 Gm Tab) 1 gm PO BID@1000,2200 [facility] Stop: 01/18/20 21:59 Last Admin: 12/23/19 08:32 Dose: 1 gm Documented by: Dextrose (Dextrose 50% 50 Ml Syringe) 25 - 50 ml IV UD PRN; Protocol PRN Reason: Hypoglycemia Protocol Stop: 01/18/20 16:44 Glucagon (Glucagon For Inj 1 Mg Vial) 1 mg IM UD PRN; Protocol PRN Reason: Hypoglycemia Protocol Stop: 01/18/20 16:44 Glucose (Glucose 40% Gel 15 Gm Tube) 15 - 30 gm PO UD PRN; Protocol PRN Reason: Hypoglycemia Protocol Stop: 01/18/20 16:44 Glucose (Glucose 10 Tabs/Tube) 4 - 8 tabs PO UD PRN; Protocol PRN Reason: Hypoglycemia Protocol Stop: 01/18/20 16:44 Heparin Sodium (Porcine) (Heparin Sod 5,000 Unit/0.5 Ml Vial) 5,000 units SQ Q8 [facility] Stop: 01/20/20 13:59 Last Admin: 12/21/19 13:32 Dose: 5,000 units Documented by: Hydralazine HCl (Hydralazine Hcl 25 Mg Tab) 75 mg PO TID [facility] Stop: 01/20/20 13:59 Last Admin: 12/23/19 08:31 Dose: 75 mg Documented by: Pantoprazole Sodium 40 mg/ (Syringe) 10 mls @ 5 mls/min IV Q12 [facility] Stop: 01/18/20 16:59 Last Admin: 12/23/19 08:29 Dose: 5 mls/min Documented by: Cefazolin Sodium (Ancef 2000mg) 2,000 mg in 15 mls @ 2.5 mls/min IV Q8H [facility]; Protocol Stop: 12/23/19 18:29 Last Admin: 12/23/19 10:39 Dose: 2.5 mls/min Documented by: Insulin Aspart (Insulin Aspart 100 Units/Ml 3 Ml Pen) 0 units SC ACHS [facility] Stop: 01/18/20 16:59 Last Admin: 12/23/19 08:31 Dose: Not Given Documented by: Insulin Glargine (Insulin Glargine Solostar 100 Units/Ml 3 Ml Pen) 20 units SC QAM [facility]; Protocol Stop: 01/22/20 08:59 Last Admin: 12/23/19 08:32 Dose: 20 units Documented by: Isosorbide Mononitrate (Isosorbide [place] Extended Rel 60 Mg Tabcr) 60 mg PO QAM [facility] Stop: 01/19/20 08:59 Last Admin: 12/23/19 08:31 Dose: 60 mg Documented by: Loperamide HCl (Loperamide Hcl 2 Mg Cap) 2 mg PO UD PRN PRN Reason: Diarrhea Stop: 01/18/20 16:01 Miscellaneous (Carbohydrates For Hypoglycemia ) 15 - 30 gm PO UD PRN PRN Reason: Hypoglycemia Treatment Stop: 01/18/20 16:44 Miscellaneous Information (Pharmacy Glycemic Mgmt Consult) 1 ea N/A UD PRN PRN Reason: Consult Stop: 01/18/20 16:22 Nitroglycerin (Nitroglycerin Sl 0.4 Mg/Tab Tab) 0.4 mg SL PRN PRN PRN Reason: Chest Pain Stop: 01/18/20 09:56 Last Admin: 12/22/19 08:20 Dose: 0.4 mg Documented by: Oxycodone HCl (Oxycodone Hcl Ir 5 Mg Tab (Immediate Release)) 5 mg PO Q6 PRN PRN Reason: Pain Stop: 01/05/20 12:03 Terazosin HCl (Terazosin Hcl 1 Mg Cap) 2 mg PO HS [facility] Stop: 01/18/20 20:59 Last Admin: 12/22/19 19:44 Dose: 2 mg Documented by: (1) Diarrhea Diarrhea type: unspecified type Qualified Code(s): R19.7 - Diarrhea, unspecified
--- NOTE | 2019-12-23 11:33 | Discharge Summary ---
Date of Service December 23, 2019 Admission HPI Per Admitting Provider Patient is a 73-year-old male with history of CAD, complete heart block, intermittent complete heart block, diabetes type 2, hypertension, CKD stage III, And other problems noted below presenting with weakness x1 week. Patient reports at least 1 week history of progressive generalized weakness associated with diffuse abdominal discomfort and diarrhea 3-5 loose bowel movements per day, nonbloody, Poor appetite, weight loss. Reports exertional dyspnea but no chest pain. Denies cough, loss of taste or smell. Reports having chills today as well. At the ER, patient presented with relatively stable vital signs. Creatinine is 2.7, potassium 6.2, bicarbonate 13. CT abdomen and pelvis: No acute process 1. The kidneys demonstrate cortical atrophy and are without hydronephrosis. 2. There is a 1.8 cm nodule arising from the anterior right wall of the bladder near the dome. Bladder neoplasm is the diagnosis of exclusion and follow-up with urology is recommended. 3. Prostatomegaly with evidence of chronic bladder outlet obstruction. 4. Prominent left inguinal lymph nodes may be on a reactive basis. Clinical correlation will be required. 5. Moderate colonic diverticulosis without CT evidence of acute diverticulitis. 6. Advanced coronary artery calcification. 7. Additional findings as above. Chest x-ray: No pneumonia or infiltrates, effusion On exam, the patient reports that he feels slightly better compared to admission. Denies active shortness of breath, chest pain, palpitations, dizziness, nausea vomiting, chills, headache. No other symptoms Admission Exam Per Admitting Provider General- oriented x 3, not in distress, speaks in sentences with no effort or accessory muscle use Head- atraumatic Eyes- PERRL, EOMI, anicteric ENT- oropharynx clear Neck- supple, no JVD, no adenopathy, no thyromegaly; carotids +2/2, no bruits appreciated Lungs- clear to auscultation bilaterally, no rales/wheezes Heart-mild bradycardia in the 50s, regular rhythm; no murmur, no gallop, no rub appreciated Abdomen- normal bowel sounds, nondistended, soft, mild tenderness on all quadrants, no masses or hepatosplenomegaly Extremities- no pretibial edema, no calf tenderness; peripheral pulses intact Neuro- alert, oriented x 3; CN 2-12 grossly intact; motor 5/5 bilaterally;sensation 100% on all extremities; no other gross focal neurologic deficits Skin- warm & dry Principal Diagnosis Acute renal failure Hyperkalemia Bradycardia s/p pacemaker placement Bladder lesion Discharge Exam CONSTITUTIONAL: obese, vitals as above, generally well-appearing EYES: normal conjunctivae, no scleral icterus ENT: external ear and nose normal, oropharynx clear RESPIRATORY: clear to auscultation bilaterally, no crackles, rales or wheezes, normal respiratory effort CARDIOVASCULAR: regular rate and rhythm, S1 and 2 heard without murmurs, gallops or rubs, no JVD, no peripheral edema GASTROINTESTINAL: soft, nontender, nondistended, no guarding. Abdomen protuberant. MUSCULOSKELETAL: strength 5/5 throughout, head is normocephalic and atraumatic SKIN: warm and dry NEUROLOGIC: CN 2-12 grossly intact, no sensory deficit, normal cognition, normal speech, no tremor, no gross neurologic deficits. PSYCHIATRIC: alert cooperative and oriented to person, place and time. Discharge Data Allergies Allergy/AdvReac Type Severity Reaction Status Date / Time Beta-Blockers Allergy Unknown . Unverified 12/19/19 10:49 (Beta-Adrenergic Bloc Penicillins Allergy Unknown . Unverified 12/19/19 10:49 tetracycline Allergy Unknown . Unverified 12/19/19 10:49 Consultations 12/19/19 11:47 ED Decision to Admit Stat 12/19/19 15:54 Consult Gastroenterology Routine Consult Nephrology Routine 12/19/19 21:42 Consult Cardiology Routine 12/20/19 08:38 Consult Urology Routine 12/22/19 09:43 Consult Cardiac Electrophysiology Routine Procedures Performed Operation Date: 12/22/19 10:30 Actual Procedures p Pacer with A/V Leads (Dual) - Case Horne MD s Venogram, Unilateral - Case Horne MD Ordered Studies 12/19/19 10:44 CT abd pelvis wo con Stat 12/22/19 10:17 CL Cath Imgs for PACS use only Routine Hospital Course (1) Weakness: Improved shortly after admission. (2) Acute hyperkalemia: Medication-induced, Reversed. Cont Nephrology management and renal diet. (3) Acute on chronic renal failure: No need for acute dialysis per Nephro. Renal function was resolved to baseline at time of discharge. Cont holding ACEI and diuretics were adjusted down. Follow-up with BMP in one week. (4) Diarrhea: resolved, and was likely medication related. (5) Lesion of bladder: urology consulted and plans for outpatient cystoscopy in office within the next few weeks. (6) Bradycardia: Pacemaker was placed during this admission. Follow-up with pacer clinic in one week. At time of discharge he was mentating and ambulating and tolerating PO. Bowel movements were regular and diarrhea had resolved. He was hemodynamically stable and afebile and was oxygenating well on room air. Total Time Total Time Spent Total Time Spent (In Minutes): 60 Total Time Includes: Examination of the Patient, Discharge Planning, Medication Reconciliation and Communication With Other Providers Discharge Plan Discharge Items Patient Disposition: Home - Self-Care Reason For Visit: ACUTE RENAL FAILURE HYPERKALEMIA Discharge Diagnosis: Acute renal failure Hyperkalemia Bradycardia s/p pacemaker placement Bladder lesion Condition on Discharge: Good Activity: Resume your previous activity Non-emergency contact: Primary Care Provider Call non-emergency contact if: you have any medication questions, your symptoms worsen, your pain is not controlled, you have a fever, your wound has increased redness, your wound has increased drainage and your wound pain has increased Follow-up/Referrals: John Arcos DO [Primary Care Provider] - 12/30/19 11:20 am (Date & Time 12/30/2019 11:20 AM Provider John Arcos Jr., DO Department [facility] ) Diet: Carb Consistent or DM2 and Low Potassium (2gm) Addtl Attending Provider Instructions: Please take all medications as instructed on discharge list below. FAMILY PRACTICE: 12/30/2019 11:20 AM John Arcos Jr., DO [facility] It is recommended that you follow-up with your primary care physician at the date and time above to ensure you are still doing well after discharge from the hospital. You will need to have a BMP (nonfasting bloodwork) early next week which may be ordered and followed by your PCP. CARDIOLOGY/PACER CLINIC: 12/30/2019 2:00 PM Pacer Clinic [facility] Followup with pacemaker clinic as instructed by cardiology. Please comply with all post-operative wound and activity instructions per cardiology. You were found to have a bladder lesion on imaging and were seen by Dr. Brad Arauz regarding an upcoming office cystoscopy to to help figure out how to treat this. Please contact [facility] to set this up after discharge. It was a pleasure taking care of you! Please call if you have any questions or problems. You can reach a [facility] Hospitalist on duty at [facility] 24 hours a day by calling [phone]. Take care of yourself. Amelie Israel, DO [facility] Addtl Etcher Hand Provider Instructions: Please refrain from lifting left arm above the shoulder behind the neck for 6 weeks. Please keep the wound dry the Steri-Strips intact until follow-up in the outpatient setting next week. Pending Studies at Discharge: No Stand-Alone Forms: My [facility], Smoking Cessation Medications and DC Order Prescriptions: New furosemide 20 mg tablet 60 mg PO DAILY Qty: 90 RF: 1 Continued atorvastatin 40 mg tablet 40 mg PO HS RF: 0 glipizide 10 mg tablet extended release 24hr 10 mg PO QAM RF: 0 hydralazine 25 mg tablet 75 mg PO TID RF: 0 allopurinol 100 mg tablet 200 mg PO HS RF: 0 isosorbide mononitrate 60 mg tablet extended release 24 hr 60 mg PO QAM RF: 0 terazosin 2 mg capsule 2 mg PO HS RF: 0 amlodipine 10 mg tablet 10 mg PO HS RF: 0 aspirin 81 mg Tablet 81 mg PO HS RF: 0 ergocalciferol (vitamin D2) 1,250 mcg (50,000 unit) capsule 1,250 mcg PO MONTHLY RF: 0 polyethylene glycol 3350 [Gavilax] 17 gram/dose powder 1 g PO DIRECTED PRN (Reason: Constipation) RF: 0 insulin aspart U-100 [Novolog Flexpen U-100 Insulin] 100 unit/mL (3 mL) Insulin Pen 6 unit SUBCUT PM RF: 0 Lantus Solostar U-100 Insulin 100 unit/mL (3 mL) insulin pen 25 unit SUBCUT DAILY RF: 0 Centrum Silver Men 300-600-300 mcg Tablet 1 tab PO DAILY RF: 0 Discontinued lisinopril 20 mg tablet 20 mg PO BID RF: 0 spironolactone 25 mg tablet 25 mg PO QAM RF: 0 furosemide 20 mg tablet 40 - 60 mg PO DIRECTED RF: 0 Lokelma 10 gram powder in packet 10 g PO PM RF: 0 Discharge Orders: Discharge Order (Routine); Ordered 12/23/19 Ordered By: Amelie Wilson/Other Patient Handouts: Managing Type 2 Diabetes, Diet Low Potassium Dc Admission Data Admit Date/Time: 12/19/19 13:24 Attending Provider: Amelie Israel Admit Provider: David Farrell Primary Care Provider: John Arcos V. Other Providers: David Farrell ; Nalini Arboleda ; Za Greenberg ; Jose Roberto Jackson ; Brad Arauz ; Karlos Benavides Other Interventions: Discharge Summary Assessment (RN) Last Done: 12/23/19 11:40
--- NOTE | 2019-12-23 11:36 | Nephrology Progress Note ---
Date of Service December 23, 2019 Assessment & Plan (1) Acute on chronic renal failure: Baseline creatinine 1.8-2.1. Presenting creatinine 2.8, improved to 2.2 12/19, then 1.8 this morning. Diarrhea has stopped, weakness improving. Presenting urine sediment bland. Prerenal acute kidney injury in the setting of diarrhea. Diarrhea has stopped and patient is clinically improving. Kadi mistries normalizing though K still high normal. Volume status acceptable. No indication for acute dialysis. No evidence bladder lesion has role in acute renal failure Continue to hold CHINO inhibitor, spironolactone. -acute resume Lasix 60 mg p.o. daily -from renal standpoint patient can be discharged to follow up with Nephrology in 1-2 weeks. He will need a BMP next week on Sunday. (2) Acute hyperkalemia: improved. Medication related and medically managed. Repeat BMP on Sunday and copied to PCP and Dr. Harrell. No need to resume Lokelma. I asked the RN to print a low k diet sheet and give patient on discharge. (3) Bradycardia: patient s/p permanent pacemaker 12/21. (4) HTN (hypertension): Continue current meds and restart lasix. No need to aggressively lower blood pressure now. Admission and Anticipated Discharge Date Admission Date: December 19, 2019 Subjective Patient had pacemaker placed yesterday. He feels better today denies any shortness of breath or pain. No urinary symptoms. Review of Systems Review of Systems: All systems reviewed & are unremarkable except as noted in HPI & below Physical Exam Physical Exam: General exam: Appears comfortable, no acute distress HEENT: Pupils are equal and reactive to light Neck: No JVD, neck is supple trachea is midline Respiratory system: Clear breath sounds bilaterally. Gastrointestinal: Abdomen is soft, non distended, non tender, bowel sounds are present CVS: Regular rate and rhythm. No murmurs, rubs or gallops Musculoskeletal: No joint or muscle tenderness Extremities: Non tender, no edema, peripheral pulses are present Neuro: Oriented, no tremors, no focal neurological deficits Skin: No rashes Results & Data ([facility]) Vital Signs (Past 12 Hours) Vital Signs Temp Pulse Resp BP Pulse Ox 12/23/19 11:12 94 12/23/19 08:00 36.6 C 60 20 172/68 H 96 12/23/19 03:26 36.8 C 62 22 179/72 H 93 Laboratory Results 12/23/19 05:52 12/23/19 05:52 WBC 6.82 RBC 3.92 L MCV 88.3 MCH 30.4 MCHC 34.4 RDW Std Deviation 45.6 RDW Coeff of [place] 14.1 Plt Count 100 L MPV 10.9 H
--- NOTE | 2019-12-23 19:23 | Electrocardiogram Report ---
Test Reason : Blood Pressure : / mmHG Vent. Rate : 040 BPM Atrial Rate : 033 BPM P-R Int : 000 ms QRS Dur : 084 ms QT Int : 482 ms P-R-T Axes : 000 -10 045 degrees QTc Int : 392 ms Possible Junctional bradycardia Premature ventricular complexes Inferior infarct (cited on or before 04-APR-2017) Possible Anterior infarct (cited on or before 19-DEC-2019) Abnormal ECG When compared with ECG of 20-DEC-2019 01:35, P waves are no longer definitively seen Confirmed by Joshua Cooley ([id number]) on 12/23/2019 7:23:16 PM Referred By: REFERRED SELF Confirmed By:Joshua Cooley
--- NOTE | 2019-12-23 19:25 | Electrocardiogram Report ---
Test Reason : Blood Pressure : / mmHG Vent. Rate : 040 BPM Atrial Rate : 034 BPM P-R Int : 000 ms QRS Dur : 082 ms QT Int : 480 ms P-R-T Axes : 000 -21 034 degrees QTc Int : 391 ms Atrial fibrillation with slow ventricular response Inferior infarct (cited on or before 04-APR-2017) Abnormal ECG When compared with ECG of 22-DEC-2019 08:00, Atrial fibrillation has replaced Junctional bradycardia Confirmed by Joshua Cooley ([id number]) on 12/23/2019 7:24:45 PM Referred By: REFERRED SELF Confirmed By:Joshua Cooley
== END 2019-12-23 15:08 | disposition home or self-care (01) | DRG 982 ==
LOC: ED 09:20 → 2S 13:24 → SUATTDRO 13:24 → 2S 15:23